=== PATIENT | female | born 1950 | race Caucasian/White ===

== ENCOUNTER → 2016-07-06 | Outpatient (CLI) | payer BC ==
[~2016-07-06] MED LIST: ACET-1138 PO; ALLO100T PO; AMOX500C3 PO; APIX1TAB3 PO; ATOR10TA88 PO; DIGO0.122 PO; FRRG PO; LEVO75TA5 PO; LISI2.5T5 PO; METO1TAB69 PO; METR0.75 TOP; MULT-506 PO; POLYSOL4 OP; PRED1SUS3 OPR; RXC5 PO
[2016-07-06 15:06] LABS: ALT/SGPT 21 U/L (12-78); AST/SGOT 19 U/L (15-37); BLOOD UREA NITROGEN 25 mg/dl (7-18); BUN/CREATININE RATIO 25.8 (10-20); CALCIUM 8.7 mg/dl (8.5-10.1); CARBON DIOXIDE 24 mmol/L (21-32); CHLORIDE 106 mmol/L (98-107); CREATININE 0.98 mg/dl (0.60-1.20); GLUCOSE 78 mg/dl (70-99); POTASSIUM 4.1 mmol/L (3.5-5.1); SODIUM 141 mmol/L (136-145)
[2016-07-06 15:17] LABS: ALKALINE PHOSPHATASE 77 U/L (45-117)
== END | disposition home or self-care (01) ==
LOC: C.LAB 14:19
PROVIDERS: ATTEND Nurse Practitioner
DX: E03.9 Hypothyroidism, unspecified (principal); E78.5 Hyperlipidemia, unspecified

== ENCOUNTER 2016-08-01 04:55 | Inpatient (IN) | payer BC ==
[2016-07-06 13:16] VITALS: BMI 28.0
--- NOTE | 2016-07-06 14:08 | PAT Medication Instructions ---
Service Date Jul 06, 2016. Current Home Medication List Allopurinol (Zyloprim), 100 MG PO QAM Amoxicillin (Amoxil), 500 MG PO UD PRN for PRIOR TO DENTAL PROCEDURES Apixaban (Eliquis), 5 MG PO BID Atorvastatin (Lipitor), 10 MG PO QAM Digoxin (Lanoxin), 0.125 MG PO QAM Levothyroxine Sodium (Levothyroxine Sodium), 75 MCG PO QAM Lisinopril (Lisinopril), 2.5 MG PO QAM Metoprolol Succ (Toprol Xl) (Toprol-Xl ), 150 MG PO QAM Metronidazole (Topical) (Metronidazole), 1 APPLN TOP BID PRN Multivitamin (Multivitamin), 1 TAB PO QAM Polyethylene Glycol-Propylene (Systane), 1 DROPS OP 6X/DAY PRN for DRY EYES Medication Instructions For Your Scheduled Surgery Apixaban (Eliquis), 5 MG PO BID (check with orthopedic rn for instructions- in order to have spinal anesthesia you have to be off Eliquis for three days) - Hold the following medications 24 hours prior to surgery: Metronidazole (Topical) (Metronidazole), 1 APPLN TOP BID PRN - Hold the following medications the morning of surgery: Multivitamin (Multivitamin), 1 TAB PO QAM Lisinopril (Lisinopril), 2.5 MG PO QAM Amoxicillin (Amoxil), 500 MG PO UD PRN for PRIOR TO DENTAL PROCEDURES - Take the following medications the morning of surgery with a sip of water: Polyethylene Glycol-Propylene (Systane), 1 DROPS OP 6X/DAY PRN for DRY EYES Metoprolol Succ (Toprol Xl) (Toprol-Xl ), 150 MG PO QAM Levothyroxine Sodium (Levothyroxine Sodium), 75 MCG PO QAM Digoxin (Lanoxin), 0.125 MG PO QAM Atorvastatin (Lipitor), 10 MG PO QAM Allopurinol (Zyloprim), 100 MG PO QAM - Take the following medications as scheduled the night before surgery: Polyethylene Glycol-Propylene (Systane), 1 DROPS OP 6X/DAY PRN for DRY EYES If you have any questions please call us at [phone] or [phone] ( Silvana) or [phone]
[2016-07-06 14:44] LABS: BASO % 1.5 %; BASO ABS # 0.09 K/uL (0-0.2); COMPLETE YES; EOS % 1.7 %; HEMATOCRIT 38.8 % (37-47); IG% 0.5 %; LYMPH % 24.4 %; LYMPH ABS # 1.45 K/uL (1.2-3.4); MEAN CELL VOLUME 97.5 fL (80-100); MEAN CORPUSCULAR HEMOGLOBIN 32.4 pg (25-34); MEAN CORPUSCULAR HGB CONC 33.2 g/dl (32-36); MEAN PLATELET VOLUME 9.5 fL (7.4-10.4); MONO % 10.9 %; PLATELET COUNT 213 K/uL (130-400); RED BLOOD COUNT 3.98 M/uL (4.2-5.4); WHITE BLOOD COUNT 5.94 K/uL (4.8-10.8)
[2016-07-06 14:57] LABS: INR 1.1 (0.9-1.1); PARTIAL THROMBOPLASTIN RATIO 1.2; PROTHROMBIN TIME (PATIENT) 11.6 SECONDS (9.0-12.0)
--- NOTE | 2016-07-06 15:02 | DIAGNOSTIC IMAGING REPORT ---
CHEST PREADMISSION(PA/LAT) CLINICAL HISTORY: Preoperative evaluation. COMPARISON STUDY: Chest radiograph November 05, 2014. FINDINGS: Lung volumes are normal. There is no pneumothorax or pleural effusion. There is no evidence of pulmonary edema. No consolidation is identified. A nodular density projecting over the left lower lung is unchanged since exam of September 01, 2013 and is therefore likely benign. A right clavicular internal fixation is noted. Cardiac size is normal. Mediastinal contours are normal. The left axilla surgical clips. IMPRESSION: No acute cardiopulmonary findings. Electronically signed by: Gerber Copeland M.D. 07/06/2016 2:58 PM Dictated Date/Time: 07/06/2016 2:56 PM
--- NOTE | 2016-07-29 15:24 | HISTORY & PHYSICAL EXAMINATION ---
DATE OF ADMISSION: 08/01/2016 CHIEF COMPLAINT: Right hip pain. HISTORY OF PRESENT ILLNESS: A 65-year-old female who presents for surgical treatment of the right hip. She has a fairly long history of right hip pain and discomfort that has gradually gotten worse over the past year. She has been treated with extensive conservative treatment. She has had 2 intraarticular hip joint injections, the first one helped her quite a bit and the second one not much at all. She continues to have groin and thigh pain. It radiates down into her knee. She has become more and more debilitated by this. She cannot walk any significant distance. Also has some back pain but more limited by her hip pain. X-ray showed advanced hip arthritis and she is interested in surgery to fix this. PAST MEDICAL HISTORY: Significant for: 1. Atrial fibrillation managed by Dr. oHffman. 2. Hypertension. 3. Elevated cholesterol. 4. Congestive heart failure. 5. Sleep apnea. 6. Hypothyroidism. 7. Mild obesity. 8. Breast cancer, status post lumpectomy. PAST SURGICAL HISTORY: Previous surgeries include: 1. Right wrist/arm surgery. 2. Right clavicle ORIF. 3. Right knee replacement done 09/03/2013. 4. Cataract surgery. ALLERGIES: CODEINE, WHICH IS JUST A SENSITIVITY. CURRENT MEDICINES: Include: 1. Levothyroxine. 2. Digitek. 3. Allopurinol. 4. Eliquis. 5. Atorvastatin. 6. Lisinopril. 7. Metoprolol. 8. Multivitamin. 9. Vitamin D. SOCIAL HISTORY: A 65-year-old female. She is . She lives in [place]. FAMILY HISTORY: Noncontributory. REVIEW OF SYSTEMS: Significant for atrial fibrillation and on Eliquis. No history of DVT or PE. No other bleeding problems. Denies any chest pain or shortness of breath. PHYSICAL EXAMINATION: GENERAL: Reveals a healthy, pleasant middle-aged female. She looks to be in good health. HEENT: Benign. NECK: Supple. No lymphadenopathy. LUNGS: Clear to auscultation. HEART: Has an irregular rhythm with a normal rate. ABDOMEN: Soft, nontender, nondistended. EXTREMITIES: Grossly neurovascularly intact except as follows. Examination of the right hip and leg reveals the patient walks with the use of a cane. She limps on the right side. She is about a 0.5 cm short on the right compared to the left. She has pain with any type of hip motion. She can internally rotate to about 10 degrees with pain, external rotation to 25. Negative straight leg raise. She is neurologically intact. X-RAYS: X-rays of the right hip were reviewed. It shows advanced right hip DJD. She has complete loss of superior joint space. She has got cystic change in the femoral head and acetabulum. Bone density looks pretty good. ASSESSMENT: A 65-year-old female, status post a right knee replacement and known history of atrial fibrillation with advanced right hip degenerative joint disease really limiting her activities. I do think her hip is limiting her more than her back. She has failed conservative treatment and would like to have her right hip replaced. PLAN: We are going to take her to the operating room and do a right total hip replacement. The risks and benefits of this procedure were explained to the patient, including but not limited to DVT, PE, , infection, neurological injury, vascular injury, bleeding problem, pain, limited range of motion, stiffness, failure to relieve symptoms, incomplete relief of symptoms, need for further surgery in the future, fracture, leg length inequality, nerve palsy, dislocation, etc. The patient understands and desires to proceed. I do not think she probably has slightly increased risk of dislocation as her hip is a bit more supple than the average. We discussed this issue with her. The patient has seen Dr. Hoffman and been cleared for surgery. She will stop her Eliquis 72 hours preop. She will hold her lisinopril the morning of surgery and make sure she takes her metoprolol. As far as discharge plans, she is planning to be discharged to home with [facility]. I will see her back 2 weeks postop.
[2016-08-01] VITALS (11 sets, daily range): BP systolic 102–133; BP diastolic 69–92; PULSE 54–90; TEMP 36.3–38.2; O2SAT 96–100; Ht 165.1 cm; Wt 76.4 kg
[~2016-08-01] VITALS: Ht 165.1 cm; Wt 76.4 kg
[~2016-08-01 04:55] MED LIST changes: -ACET-1138 PO; -FRRG PO; -PRED1SUS3 OPR; -RXC5 PO
[2016-08-01] MEDS ORDERED: SCOPOLAMINE 1.5 MG TDSY TD SCH (06:00)
[2016-08-01] MEDS ORDERED: CEFAZOLIN 2000 MG/60 ML D5W 60 ML IV SCH (06:00)
[2016-08-01] MEDS ORDERED: FAMOTIDINE 20 MG TAB PO SCH (06:00)
[2016-08-01] MEDS ORDERED: GABAPENTIN 300 MG CAP PO SCH (06:00)
[2016-08-01] MEDS ORDERED: METOCLOPRAMIDE HCL 10 MG TAB PO SCH (06:00)
[2016-08-01] MEDS ORDERED: ACETAMINOPHEN 500 MG TAB PO SCH (06:00)
[2016-08-01] MEDS ORDERED: TRANEXAMIC ACID INJ 1,000 MG in SODIUM CHLORIDE 0.9% 100ML 100 ML IV SCH (06:00)
[2016-08-01] MEDS ORDERED: BUPIVACAINE 0.5 % 5 MG/1 ML PF 10ML VIAL ONE (06:27)
[2016-08-01] MEDS ORDERED: LACTATED RINGER'S 1000ML IV SCH (06:30)
[2016-08-01] MEDS ORDERED: LACTATED RINGER'S 1000ML 1,000 ML IV SCH (06:30)
[2016-08-01] MEDS ORDERED: BUPIVACAINE/EPINEPHRINE 0.5% MPF 1:200,000 30 ML VIAL ONE (06:48)
[2016-08-01] MEDS ORDERED: BACITRACIN 50000 UNIT VIAL ONE (06:48)
--- NOTE | 2016-08-01 06:50 | History & Physical Bridge Note ---
H&P Re-Evaluation Bridge Note: I have examined the patient, reviewed the History & Physical and in the interval since the performance of the History & Physical I have noted the following changes of clinical significance: No changes noted
[2016-08-01] MEDS ORDERED: MIDAZOLAM HCL 1 MG/ML 2ML VIAL ONE (06:53)
[2016-08-01] MEDS ORDERED: PROPOFOL IV EMULSION 10 MG/ML 20 ML VIAL IV ONE ×2 (08:14→08:21)
[2016-08-01] MEDS ORDERED: PHENYLEPHRINE 100MCG/ML 5ML SYR ONE (08:14)
[2016-08-01] MEDS ORDERED: PHENYLEPHRINE 100MCG/ML 5ML SYR IV PRN (08:30)
[2016-08-01] MEDS ORDERED: HYDROmorphone INJ 0.5 MG/0.5 ML SYR IV PRN (08:30)
[2016-08-01] MEDS ORDERED: EpHEDrine SULFATE INJ 50 MG/ML AMP IV PRN (08:30)
[2016-08-01] MEDS ORDERED: ONDANSETRON INJ 2 MG/ML 2 ML VIAL IV PRN ×2 (08:30→08:45)
[2016-08-01] MEDS ORDERED: ATROPINE SULFATE 0.1 MG/ML 5ML SYR IV PRN (08:30)
--- NOTE | 2016-08-01 08:39 | [facility] Post Operative Brief Note ---
Immediate Operative Summary Operative Date Aug 01, 2016. Pre-Operative Diagnosis Right hip degenerative joint disease Post-Operative Diagnosis Right hip degenerative joint disease Procedure(s) Performed Right total hip arthroplasty Surgeon Dr. Clark Long Designer Writer Surgeon(s) Amilcar Russell PA-C Estimated Blood Loss 300ML Findings Right Hip DJD Fluids (cc crystalloids) 1200 cc Specimens A. Right femoral head Drains None Anesthesia Spinal Complication(s) None Disposition Recovery Room / PACU
[2016-08-01] MEDS ORDERED: ALUMINUM/MAGNESIUM/SIMETH (MAALOX MAX) 30 ML UDC PO PRN (08:45)
[2016-08-01] MEDS ORDERED: DiphenhydrAMINE HCL 50 MG/ML VIAL IV PRN (08:45)
[2016-08-01] MEDS ORDERED: ZOLPIDEM TARTRATE 5 MG TAB PO PRN (08:45)
[2016-08-01] MEDS ORDERED: METOCLOPRAMIDE HCL INJ 5 MG/ML 2 ML VIAL IV PRN (08:45)
[2016-08-01] MEDS ORDERED: SILVER SULFADIAZINE 1% CR 50 GM JAR EXT PRN (08:45)
[2016-08-01] MEDS ORDERED: METRONIDAZOLE TOP PRN (08:45)
[2016-08-01] MEDS ORDERED: BISACODYL 10 MG SUPP PR PRN (08:45)
[2016-08-01] MEDS ORDERED: MAGNESIUM HYDROXIDE SUSP 30 ML UDC PO PRN (08:45)
[2016-08-01] MEDS ORDERED: MULTIVITAMIN TAB PO SCH (09:00)
--- NOTE | 2016-08-01 09:15 | Anesthesiology Progress Note ---
Anesthesia Post Op Note Date & Time Aug 01, 2016 at 09:15 Vital Signs Pain Intensity: 0 Vital Signs Past 12 Hours Date Time Temp Pulse Resp B/P Pulse Ox O2 Delivery O2 Flow Rate FiO2 08/01/16 08:40 36.8 78 16 115/71 100 Mask 10 08/01/16 05:44 36.7 90 20 125/76 99 Room Air Notes Mental Status: alert / awake / arousable, participated in evaluation Pt Amnestic to Procedure: Yes Nausea / Vomiting: adequately controlled Pain: adequately controlled Airway Patency, RR, SpO2: stable & adequate BP & HR: stable & adequate Hydration State: stable & adequate Anesthetic Complications: no major complications apparent
--- NOTE | 2016-08-01 09:17 | DIAGNOSTIC IMAGING REPORT ---
AP PELVIS AND RIGHT HIP 2 VIEWS CLINICAL HISTORY: Degenerative arthritis COMPARISON STUDY: No previous studies for comparison. FINDINGS: There are postsurgical changes of a total right hip arthroplasty. The acetabular and femoral components appear well seated. No acute fractures or dislocations are visualized. There is air within the soft tissues consistent with recent surgery. There are overlying skin brian. There is a deformity of the left ischio pubic ring. This is felt to be chronic. IMPRESSION: Postsurgical changes of a total right hip arthroplasty. Electronically signed by: Tc Marcelino M.D. 08/01/2016 9:15 AM Dictated Date/Time: 08/01/2016 9:14 AM
--- NOTE | 2016-08-01 09:20 | OPERATIVE REPORT ---
DATE OF OPERATION: 08/01/2016 SURGEON: Dr. Clark Long. NNPS: MAUREEN Whitlock PREOPERATIVE DIAGNOSIS: Right hip degenerative joint disease. POSTOPERATIVE DIAGNOSIS: Same. PROCEDURE PERFORMED: Right uncemented ceramic on highly cross-linked polyethylene total hip arthroplasty. COMPLICATIONS: None. ESTIMATED BLOOD LOSS: 300 mL. FLUID REPLACEMENT: 1200 mL crystalloid fluid replacement. ANESTHESIA: Spinal. DRAINS: None. SPECIMENS: Right femoral head sent for pathology. OPERATIVE INDICATIONS: The patient is a 65-year-old female with a fairly long history of orthopedic problems in the past. She developed progressive and persistent increased right hip pain over the past year. She has had extensive conservative treatment including oral medicines as well as some intra-articular hip join injection, which provided some temporary relief. The patient failed conservative care. She is requiring a cane to get around. She elected to proceed with operative treatment/hip replacement. OPERATIVE FINDINGS: Operative findings revealed advanced right hip DJD. She had grade 4 [id number] disease of the femoral head and acetabulum. She did have a fairly deficient posterior acetabular wall. Fairly shallow acetabular cup. She had osteophytes both around the femoral head as well as the acetabulum. Moderate sized joint effusion and some moderate synovitis. OPERATIVE IMPLANTS: Operative implants consisted of, 1. G7 size 52-mm acetabular shell. 2. A 6.5 cancellous acetabular screws, 1 at 35 mm length and 1 at 20 mm length. 3. [place] hole eliminator. 4. A highly cross-linked polyethylene liner with a 52 mm outer diameter and 32 mm inner diameter. 5. A DePuy size 12 small stature femoral stem. 6. +9/32 mm ceramic articular ball. OPERATIVE PROCEDURE: The patient was taken to the operating room, identified and placed on the operating table in the supine position. All contact areas were appropriately padded. IV antibiotics provided by anesthesia team. A spinal anesthetic had been implemented in the holding area. Bhardwaj catheter was placed in sterile fashion. The patient was then placed in the left lateral decubitus position. An axillary roll was placed. Stulberg hip positioner was used for positioning. Right hip and leg were then prepped and draped in the usual sterile fashion. A posterolateral approach to the right hip was then performed through a curvilinear incision centered over the greater trochanter. Sharp dissection was carried out through the subcutaneous tissues down to the level of the IT band and gluteal fascia. The IT band and gluteal fascia were incised longitudinally in line with the skin incision. The underlying greater trochanteric bursa was excised. The piriformis and external rotators were tagged and taken off the posterior aspect of the femur. Great care was taken throughout the procedure to protect the sciatic nerve at all times. Posterior capsulotomy was then performed leaving a large flap for later repair. Hip was internally rotated and dislocated. Femoral neck osteotomy cut was made with the final cut 11 mm above the lesser trochanter. Femoral head was removed and sent for pathology. The femur was retracted anteriorly. Attention was then drawn to the acetabulum. The acetabular labrum was excised. The pulvinar fat was excised. Sequential reaming of the acetabulum was then performed beginning with a size 45 and progressing up to 51. A 52-mm Biomet G7 acetabular shell was then placed in about 40 degrees of lateral opening and 20 degrees of anteversion. It was fixed with two 6.5 cancellous acetabular screws. A trial liner was placed. Attention was then drawn to the femur. The proximal femur was entered with a cookie cutter followed by canal finder and lateralizing reamer. I reamed the femur beginning with a size 10 and progressing up to 11.5. We got pretty good chatter at 11.5. I then broached beginning with a 10.5 small broach and progressed to a 12.0 small broach. Proximal dimensions were pretty narrow and I did not feel I could get the large broach in. We then used a calcar reamer to smoothen off the calcar. Hip was then trialed and the +9 head seemed to create appropriate soft tissue tension in maximum stability as well as leg length. Hip was fully stable in full extension and external rotation along with flexion to 90 degrees and internal rotation to 70 degrees. We elected to use these implants. All trial implants were removed. The wound was irrigated with copious amounts of pulsatile lavage solution. An apex hole eliminator was placed. IV cross-linked polyethylene liner was placed. A 12 small stature AML femoral stem was placed. A +9/32 mm ceramic articular ball was placed. Hip was located and once again found to be stable. Attention was then drawn toward closing. The wound was irrigated with copious amounts of pulsatile lavage solution. I did inject locally with 60 mL of 0.5% Marcaine with epinephrine. The posterior capsule and external rotators were then repaired through drill holes in the posterior trochanter with #2 Ti-Cron suture. The IT band and gluteal fascia were then closed with #1 PDS suture in running fashion. The subcutaneous tissues were then closed in 2 layers with a deep layer #1 Vicryl suture and the subcutaneous tissues with 2-0 Dexon suture in a buried interrupted fashion. The skin was closed with skin brian. Leg was then cleaned and dried and a sterile dressing of Xeroform, 4 x 4's, ABD pad and foam tape was applied. The patient then transferred to the recovery room in stable condition. The patient tolerated the procedure well. There were no complications. All needle and sponge counts were correct at the end of the operation. I attest to the content of the Intraoperative Record and any orders documented therein. Any exceptions are noted below. ELVIRAD
[2016-08-01] MEDS ORDERED: ARTIFICIAL TEARS OP SOLN OP PRN ×2 (10:30)
[2016-08-01] MEDS: CHECK SCOPOLAMINE PATCH PLACEMENT SCH ×2 (11:11→16:11)
[2016-08-01] MEDS: METOPROLOL SUCC 50MG EXT REL TAB PO SCH (11:12)
[2016-08-01] MEDS: ALLOPURINOL 100 MG TAB PO SCH (11:12)
[2016-08-01] MEDS: ATORVASTATIN 10 MG TAB PO SCH (11:13)
[2016-08-01] MEDS: LEVOTHYROXINE 75 MCG TAB PO SCH (11:13)
[2016-08-01] MEDS: TAPENTADOL ER 50 MG TABCR PO SCH ×2 (11:16→21:36)
[2016-08-01] MEDS: DOCUSATE SODIUM 100 MG CAP PO SCH ×2 (11:16→21:36)
[2016-08-01] MEDS: MULTIVITAMIN TAB PO SCH (11:16)
[2016-08-01] MEDS: LISINOPRIL 2.5 MG TAB PO SCH (11:17)
[2016-08-01] MEDS: PANTOprazole SOD 40 MG TAB PO SCH (11:17)
[2016-08-01] MEDS: D5W AND 1/2NSS + 20MEQ KCL 1,000 ML IV SCH ×2 (11:18→21:37)
[2016-08-01] MEDS ORDERED: NURSING VERBAL MED ORDER ONE (11:30)
[2016-08-01] MEDS: FERROUS GLUCONATE 324 MG TAB PO SCH ×2 (13:03→17:54)
[2016-08-01] MEDS: KETOROLAC TROMETHAMINE 30 MG/ML VIAL IV. SCH ×2 (13:03→17:54)
[2016-08-01] MEDS: ACETAMINOPHEN 500 MG TAB PO SCH ×2 (13:44→21:37)
[2016-08-01] MEDS: OXYCODONE HCL IR 5 MG TAB (IMMEDIATE RELEASE) PO PRN ×2 (14:42→21:46)
--- NOTE | 2016-08-01 15:52 | CARDIOLOGY CONSULTATION ---
DATE OF CONSULTATION: 08/01/2016 HISTORY OF PRESENT ILLNESS: Mrs. Tess Turk is a 65-year-old woman with a history of persistent atrial fibrillation. The patient had been limited recently by right hip pain to the point where she had difficulty with ambulation, in fact she states that after spending most of her life as an active individual, she recently has had to curtail her activities, is no longer able to participate in supports and leading up to her surgery was forced to use crutches for ambulation. As such she has been very sedentary. The patient has a history of atrial fibrillation which has been persistent. Originally, she had evidence of reduced LV function, possibly associated with sustained high ventricular rates. Ventricular function seems to have improved with control of her rate and currently she is asymptomatic with regard to her arrhythmia. Currently, the patient is feeling well. She recently finished her surgery this morning but has no significant pain. She is slightly groggy but otherwise feels comfortable with respect to breathing. She has no chest discomfort. She is not feeling dizzy. She has no sense of palpitations. PAST MEDICAL HISTORY: Significant for: 1. The aforementioned atrial fibrillation. 2. Nonischemic cardiomyopathy, now resolved. 3. Diverticulosis. 4. Gout. 5. Hyperlipidemia. 6. Hypertension. 7. Hypothyroidism. 8. Lumbar radiculopathy. 9. Hemorrhoids. 10. Rosacea. 11. Sleep apnea. 12. Varicose veins. PAST SURGICAL HISTORY: Includes breast surgery and a total knee replacement. The patient recently underwent a right total hip replacement today. OUTPATIENT MEDICATIONS: Include allopurinol, atorvastatin, digoxin, Eliquis, levothyroxine, lisinopril, metoprolol, metronidazole and vitamin D. MEDICAL ALLERGIES: CODEINE. SOCIAL HISTORY: The patient is currently and lives locally. She is a nonsmoker and denies heavy alcohol abuse. FAMILY HISTORY: No history of premature coronary disease. REVIEW OF SYSTEMS: A complete 10-system review of systems was performed and the pertinent positives are noted in the history of present illness. She denied any recent constitutional symptoms such as fevers or chills. She is not aware of any palpitations. She has not had any recent dizziness or lightheadedness, but does admit to less activity due to her right hip pain. She denies significant swelling in her lower extremities recently. No change in her bowel or bladder habits. PHYSICAL EXAMINATION: GENERAL: The patient does not appear in acute distress. She is pleasant individual who is alert and oriented. Mood and affect appeared normal. She answered all questions appropriately. VITAL SIGNS: Include a blood pressure of 130/78 with a pulse of 68. HEENT: Sclerae are anicteric. Pupils equal, reactive to light and accommodation. Extraocular movements were intact. Palpation of submandibular region not really significant lymphadenopathy. NECK: The carotids are palpable bilaterally. I do not appreciate any bruits on auscultation. There is no evidence of jugular venous distention, although the neck tissue was somewhat redundant on exam. LUNGS: Auscultation of both lung galloway revealed them to be clear in the apices. She had good air movement. There were no rales, wheezes or rhonchi. She had normal respiratory effort without use of accessory muscles. HEART: Revealed her to be in an irregular, irregular rhythm and somewhat slow. I do not appreciate any murmurs on exam. PMI was not markedly displaced on palpation. ABDOMEN: Soft and nontender. EXTREMITIES: Evaluation both wrists revealed radial pulses that were equal in intensity. There is no evidence of cyanosis or clubbing. Evaluation of lower extremities revealed a VENKATA hose to be in place. She appeared to have good perfusion. SKIN: I do not appreciate any rashes on examination today. LABORATORY STUDIES: Obtained on 07/06/2016 include a white cell count of 5.9, hemoglobin of 12.9, a platelet count of 213. Metabolic panel done on same date included a sodium 141, potassium of 4.1, creatinine was 0.98. An EKG was obtained today postoperatively. This revealed the patient to be in atrial fibrillation with controlled ventricular response. I reviewed the patient's outpatient medical record which had report of an echocardiogram obtained in January of 2016. This revealed preserved left ventricular systolic function without significant valvular disease. ASSESSMENT AND PLAN: 1. Atrial fibrillation: Longstanding persistent. The patient tends to feel well in atrial fibrillation, although she admits to being very sedentary recently due to her hip disease. It is unclear whether she still feels well when she is more active secondary to this hip replacement. She has had some difficulties in the past with slow heart rates and sinus rhythm and she was felt to be a good candidate for a pacemaker should she want to attempt a return to sinus rhythm in the setting of symptomatic atrial fibrillation. Currently, she is doing well on her standard medical regimen. She is taking her normal medications throughout the perioperative period and feels well with controlled heart rates. She has been restarted on her Eliquis, no additional therapy required at this point in the absence of new symptoms. 2. Nonischemic cardiomyopathy: Resolved. Last echocardiogram revealed preserved left ventricular systolic function. The patient has been maintained on a beta linda and AAKASH inhibitor. It is also likely that she has had improvement in her LV function due to improved rate control. No evidence of volume overload currently. We will need to monitor her during this hospitalization as she mobilized some of her fluids. No symptoms at this time. I will recommend continuation of her outpatient medical regimen.
[2016-08-01] MEDS ORDERED: DIGOXIN 0.125 MG TAB PO SCH (16:00)
[2016-08-01] MEDS: CEFAZOLIN IV 1,000 MG in DEXTROSE 5% 50ML 50 ML IV SCH (16:28)
--- NOTE | 2016-08-01 18:21 | PROGRESS NOTE ---
DATE: 08/01/2016 SUBJECTIVE: A 65-year-old female postop from a right total hip replacement. She is doing well. She was a bit painful earlier, but doing better now. She has been up and about and walked some already. No chest pain or shortness of breath. Not feeling dizzy or lightheaded. OBJECTIVE: VITAL SIGNS: Temperature 36.7. Vital signs stable. GENERAL: Physical examination reveals a healthy, pleasant middle-aged female. She is lying in bed, looks pretty comfortable. LUNGS: Clear to auscultation. HEART: Regular rate and rhythm. ABDOMEN: Soft, nontender, and nondistended. EXTREMITIES: Grossly neurovascularly intact except as follows. Examination of the right lower extremity revealed the leg to be well aligned. Leg lengths were equal. Hip is located. She can dorsiflex and plantarflex her foot appropriately. She is neurologically intact. X-RAYS: X-rays of the right hip from the recovery room were reviewed. It showed a right uncemented total hip arthroplasty. Components looked to be in good position. No signs of problems. ASSESSMENT: A 65-year-old female postop from a right total hip replacement, doing well. Pain is controlled. Hip is located. She is neurologically intact. PLAN: 1. DVT prophylaxis including thigh-high TEDs, SCDs, and we will place her back on her Eliquis. We will start at a prophylactic dose 24 hours postoperatively and then increase to a therapeutic dose probably 72 hours postop to try and decrease her risk of bleeding if acceptable with cardiology. 2. PT/OT. Weightbear as tolerated. Right total hip protocol. 3. Pain control. Doing well with current pain regimen. 4. IV antibiotics x24 hours. 5. Disposition: She is hoping to be discharged to home with some home health once adequately recovered.
[2016-08-02] MEDS: CEFAZOLIN IV 1,000 MG in DEXTROSE 5% 50ML 50 ML IV SCH (01:05)
[2016-08-02] MEDS: KETOROLAC TROMETHAMINE 30 MG/ML VIAL IV. SCH ×2 (01:05→05:38)
[2016-08-02 03:38] VITALS: BP 100/64; PULSE 84; TEMP 36.8; O2SAT 98
[2016-08-02] MEDS: LEVOTHYROXINE 75 MCG TAB PO SCH (05:37)
[2016-08-02] MEDS: ACETAMINOPHEN 500 MG TAB PO SCH ×3 (05:37→21:50)
[2016-08-02] MEDS: D5W AND 1/2NSS + 20MEQ KCL 1,000 ML IV SCH (05:38)
[2016-08-02 07:30] LABS: BUN/CREATININE RATIO 24.3 (10-20); CALCIUM 8.7 mg/dl (8.5-10.1); CREATININE 0.98 mg/dl (0.60-1.20); POTASSIUM 4.7 mmol/L (3.5-5.1)
[2016-08-02 07:43] LABS: BASO % 0.5 %; BASO ABS # 0.04 K/uL (0-0.2); COMPLETE YES; HEMATOCRIT 31.9 % (37-47); IG% 0.8 %; LYMPH % 10.3 %; LYMPH ABS # 0.88 K/uL (1.2-3.4); MEAN CELL VOLUME 102.6 fL (80-100); MEAN CORPUSCULAR HEMOGLOBIN 32.8 pg (25-34); MEAN PLATELET VOLUME 9.8 fL (7.4-10.4); MONO % 12.6 %; NEUT % 73.8 %; PLATELET COUNT 153 K/uL (130-400); RED BLOOD COUNT 3.11 M/uL (4.2-5.4); WHITE BLOOD COUNT 8.57 K/uL (4.8-10.8)
[2016-08-02 07:47] LABS: EOSINOPHIL % 1.7 %; LYMPH ABS # 1.19 K/uL (1.2-3.4); LYMPHOCYTE % 13.9 %; NEUTROPHILS % 72.2 %; PLT ESTIMATE NORMAL
[2016-08-02] MEDS: FERROUS GLUCONATE 324 MG TAB PO SCH ×3 (08:36→17:47)
[2016-08-02] MEDS: CHECK SCOPOLAMINE PATCH PLACEMENT SCH ×3 (08:36→16:22)
[2016-08-02] MEDS: PANTOprazole SOD 40 MG TAB PO SCH (08:37)
[2016-08-02] MEDS: ATORVASTATIN 10 MG TAB PO SCH (08:37)
[2016-08-02] MEDS: APIXABAN 2.5 MG TAB PO SCH ×2 (08:37→20:32)
[2016-08-02] MEDS: DOCUSATE SODIUM 100 MG CAP PO SCH ×2 (08:37→20:31)
[2016-08-02] MEDS: MULTIVITAMIN TAB PO SCH (08:39)
[2016-08-02] MEDS: DIGOXIN 0.125 MG TAB PO SCH (08:39)
[2016-08-02] MEDS: TAPENTADOL ER 50 MG TABCR PO SCH ×2 (08:39→20:31)
[2016-08-02] MEDS: METOPROLOL SUCC 50MG EXT REL TAB PO SCH (08:40)
[2016-08-02] MEDS: LISINOPRIL 2.5 MG TAB PO SCH (08:40)
[2016-08-02] MEDS: ALLOPURINOL 100 MG TAB PO SCH (08:40)
[2016-08-02 08:45] VITALS: BP 122/74; PULSE 78; TEMP 36.6; O2SAT 98
[2016-08-02] MEDS: OXYCODONE HCL IR 5 MG TAB (IMMEDIATE RELEASE) PO PRN ×2 (08:52→21:51)
--- NOTE | 2016-08-02 09:51 | Cardiology Follow-Up ---
Subjective Date of Service: Aug 02, 2016. Pt evaluation today including: conversation w/ patient, physical exam, lab review, review of studies, review of inpatient medication list History of Present Illness Doing well post-surgery yesterday. Minor incisional discomfort, ambulating well with a walker. No palpitations or cardiovascular symptoms. No bleeding (back on Eliquis). Social History Smoking Status: Former Smoker History of Alcohol Use: Yes (1-3 SOCIAL DRINKS WEEKLY) Review of Systems Respiratory: No shortness of breath Cardiac: + palpitations, No chest pain Medications Cardiovascular: Item Value Date Time Apixaban 2.5 mg 08/02/16 0900 (Eliquis Tab) BID/PO 08/02/16 0837 Digoxin 0.125 mg 08/02/16 0900 (Lanoxin Tab) QAM/PO 08/02/16 0839 Atorvastatin 10 mg 08/01/16 0900 Calcium QAM/PO 08/02/16 0837 (Lipitor Tab) Lisinopril 2.5 mg 08/01/16 0900 (Zestril Tab) QAM/PO 08/02/16 0840 Metoprolol 150 mg 08/01/16 0900 Succinate QAM/PO 08/02/16 0840 (Toprol Xl Tab) Objective Vital Signs Past 12 Hours Date Time Temp Pulse Resp B/P Pulse Ox O2 Delivery O2 Flow Rate FiO2 08/02/16 08:45 36.6 78 20 122/74 98 Room Air 08/02/16 08:39 90 08/02/16 03:38 36.8 84 16 100/64 98 Room Air 08/02/16 01:00 Room Air 08/01/16 23:03 36.7 88 16 102/69 98 Room Air Last Recorded Weight-Kilograms: 76.400 Intake & Output 8-Hour Column 08/01/16 08/02/16 08/02/16 16:00 00:00 08:00 Intake Total 1597 ml 859 ml 720 ml Output Total 855 ml 250 ml 1050 ml Balance 742 ml 609 ml -330 ml 24-Hour Column 08/02/16 08:00 Intake Total 3176 ml Output Total 2155 ml Balance 1021 ml Physical Exam Constitutional: Level of Distress: NAD Lungs: Auscultation: breath sounds normal Cardiovascular: Heart Auscultation: irregular rate rhythm Data Laboratory Results: Last 24 Hours Test 08/02/16 06:30 White Blood Count 8.57 K/uL Red Blood Count 3.11 M/uL Hemoglobin 10.2 g/dL Hematocrit 31.9 % Mean Corpuscular Volume 102.6 fL Mean Corpuscular Hemoglobin 32.8 pg Mean Corpuscular Hemoglobin Concent 32.0 g/dl Platelet Count 153 K/uL Mean Platelet Volume 9.8 fL Neutrophils (%) (Auto) 73.8 % Lymphocytes (%) (Auto) 10.3 % Monocytes (%) (Auto) 12.6 % Eosinophils (%) (Auto) 2.0 % Basophils (%) (Auto) 0.5 % Neutrophils # (Auto) 6.33 K/uL Lymphocytes # (Auto) 0.88 K/uL Monocytes # (Auto) 1.08 K/uL Eosinophils # (Auto) 0.17 K/uL Basophils # (Auto) 0.04 K/uL RDW Standard Deviation 52.5 fL RDW Coefficient of Variation 14.2 % Immature Granulocyte % (Auto) 0.8 % Immature Granulocyte # (Auto) 0.07 K/uL Neutrophils % (Manual) 72.2 % Lymphocytes % (Manual) 13.9 % Monocytes % (Manual) 12.2 % Eosinophils % (Manual) 1.7 % Neutrophils # (Manual) 6.19 K/uL Total Absolute Neutrophils 6.19 K/uL Lymphocytes # (Manual) 1.19 K/uL Total Absolute Lymphocytes 1.19 K/uL Monocytes # (Manual) 1.05 K/uL Eosinophils # (Manual) 0.15 K/uL Platelet Estimate NORMAL Sodium Level 141 mmol/L Potassium Level 4.7 mmol/L Chloride Level 109 mmol/L Carbon Dioxide Level 26 mmol/L Anion Gap 6.0 mmol/L Blood Urea Nitrogen 24 mg/dl Creatinine 0.98 mg/dl Est Creatinine Clear Calc Drug Dose 60.1 ml/min Estimated GFR () 71.2 Estimated GFR (Non- 61.4 BUN/Creatinine Ratio 24.3 Random Glucose 110 mg/dl Calcium Level 8.7 mg/dl Assessment and Plan #1. Postop: Doing well postoperatively, recovering nicely from surgery. #2. Atrial fibrillation: Back on eliquis, heart rate well controlled on vital signs and exam. Asymptomatic. I would recommend sending her home on the same cardiac medications that she was on admission. Thank you for allowing me to participate in her care.
[2016-08-02 09:57] VITALS: O2SAT 98
--- NOTE | 2016-08-02 12:07 | PROGRESS NOTE ---
DATE: 08/02/2016 DATE: 08/02/2016. SUBJECTIVE: A 65-year-old white female postop day 1 from right total hip replacement. She is doing well. Had a pretty good night. Pain is controlled. Denies any chest pain or shortness of breath. Not feeling dizzy or lightheaded. OBJECTIVE: VITAL SIGNS: Temperature is 36.6. Vital signs stable. PHYSICAL EXAMINATION: GENERAL: Reveals a healthy pleasant, middle-aged female. She is lying in bed, looks pretty comfortable. LUNGS: Clear to auscultation. HEART: Has an irregularly irregular rhythm. ABDOMEN: Soft, nontender, nondistended. EXTREMITY EXAMINATION: Grossly neurovascularly intact except as follows: Examination of right hip and leg reveals the leg to be well aligned. Hip is located. Dressing is clean, dry and intact. She can dorsiflex and plantarflex her foot appropriately. LABORATORY DATA: Hemoglobin 10.2, hematocrit 31.9. Electrolytes are stable. ASSESSMENT: A 65-year-old white female postop day 1 from right total hip replacement, doing well. Pain is controlled. Her hip is located. She is neurologically intact. Has a significant cardiac history but asymptomatic. She is anemic, but without symptoms. PLAN: 1. DVT prophylaxis including thigh-high TEDs, SCDs, and we are going to start her back on her Eliquis at a prophylactic dose today and increase it to a therapeutic dose in about 3 days postop. 2. PT/OT. Weight bear as tolerated. Right total hip protocol. 3. Pain control. Doing well with current pain regimen. 4. Disposition. She is planning to be discharged to home with some home health once adequately recovered.
[2016-08-02 12:13] VITALS: BP 108/77; PULSE 80; TEMP 36.8; O2SAT 99
--- NOTE | 2016-08-02 12:58 | Anesthesiology Progress Note ---
Anesthesia Post Op Note Date & Time Aug 02, 2016 at 12:57 Vital Signs Vital Signs Past 12 Hours Date Time Temp Pulse Resp B/P Pulse Ox O2 Delivery O2 Flow Rate FiO2 08/02/16 12:13 36.8 80 19 108/77 99 Room Air 08/02/16 09:57 98 Room Air 08/02/16 08:45 36.6 78 20 122/74 98 Room Air 08/02/16 08:39 90 08/02/16 07:45 Room Air 08/02/16 03:38 36.8 84 16 100/64 98 Room Air 08/02/16 01:00 Room Air Notes Mental Status: alert / awake / arousable, participated in evaluation Pt Amnestic to Procedure: Yes Nausea / Vomiting: adequately controlled Pain: adequately controlled Airway Patency, RR, SpO2: stable & adequate BP & HR: stable & adequate Hydration State: stable & adequate Neuraxial Anesthesia: was administered, sensory block resolved Anesthetic Complications: no major complications apparent
[2016-08-02 16:27] VITALS: BP 108/65; PULSE 83; TEMP 36.8; O2SAT 94
[2016-08-02] MEDS ORDERED: RXC5 PO (21:30)
[2016-08-02] MEDS ORDERED: ACET-1138 PO (21:30)
[2016-08-02] MEDS ORDERED: FRRG PO (21:30)
--- NOTE | 2016-08-02 21:33 | Discharge Instructions ---
Discharge Instructions Date of Service Aug 02, 2016. Admission Reason for Admission: Right Hip Degenerative Joint Disease Discharge Discharge Diagnosis / Problem: Right Hip Replacement Discharge Goals Goal(s): Decrease discomfort, Improve function, Increase independence, Improve disease control, Therapeutic intervention Activity Recommendations Activity Limitations: per Instructions/Follow-up section (Total Hip Precautions ) Weightbearing Status: Right weightbearing . Instructions / Follow-Up Instructions / Follow-Up ACTIVITY RECOMMENDATIONS: Physical Therapy: * Aggressive physical therapy is not usually needed. You will learn to take care of yourself safely and walk. * Follow the "Hip Precautions Instructions." * In some cases, the social media project manager at the hospital will arrange to have a therapist come to your house for the first couple of weeks to help you learn these skills. * You need to practice on your own or with the help of a family member as needed. * When you learn these skills, most of the therapy can be done on your own. Home Exercise: * You were shown a series of exercises in the hospital. Do these exercises three to four times each day including the exercises you were shown in physical therapy. Walking: * Get up and walk several times each day. For the first four weeks, try not to stand or walk for more than one hour at a time. If you do stand or walk for more than one hour, you will not hurt anything, but your leg will likely swell. * As you feel comfortable, you may change from the walker or crutches to a cane and then to independent walking. MEDICATIONS: New Medicine: * You will likely be taking one or more of these medicines: 1. Oxycodone - Take, as directed, when you need it, every four to six hours to control your pain. 2. Iron Sulfate - Take three times each day for the month after surgery to help you replace the blood lost during surgery. * The most common side effects of pain medicine and iron are nausea and constipation. If nausea or constipation is too much of a problem or if you have any questions about your new medicines or doses, call [facility] at . We will try to help you manage these issues. VERY IMPORTANT TO READ AND REVIEW" Pain: * The immediate post-operative period after hip replacement surgery is often quite painful. * You are given a prescription for pain medicine. You should take it, as directed, when you need it, especially before physical therapy and before going to bed. Pain that interferes with sleep is very common and can last several months. * You will likely need pain medicine for the first two to four weeks. It will not stop all of the pain. The pain will lessen and as you feel better, you may change to milder pain medicine such as Tylenol. * The most common side effects of pain medicine are nausea and constipation, so don't take more than you need. SPECIAL CARE INSTRUCTIONS: TEDs/Elastic Stockings: * The white elastic stockings help limit swelling and prevent blood clots from forming in your legs. The more you wear them, the more they work. * Wear them for six weeks. Prevention of Infection: * Take antibiotics one hour before any dental cleaning, dental work, urological procedure, gastrointestinal procedure or any invasive surgery in order to prevent your new joint from getting infected. * You may get the antibiotics from the doctor performing the procedure or you may call our office at before and we will call in a prescription to the pharmacy of your choice. Things to Watch For: * Drainage from the incision site that occurs more than one week after your surgery. * Severely increased leg pain or swelling. * Increased redness at the incision site. * Fever above 102 degrees Fahrenheit. * Unusual chest pain or shortness of breath. * Unusual pain or burning with urination. Call [facility] at with any of the above problems or if you have any questions about your medicines or recovery. FOLLOW UP VISIT: Make an appointment to see your doctor for approximately two weeks after surgery for a progress check and staple removal by calling the office at . Current Hospital Diet Patient's current hospital diet: Regular Diet Discharge Diet Recommended Diet: Regular Diet Procedures Procedures Performed: Right total hip arthroplasty Pending Studies Studies pending at discharge: no Medical Emergencies . Who to Call and When: Medical Emergencies: If at any time you feel your situation is an emergency, please call [phone] immediately. . Non-Emergent Contact Non-Emergency issues call your: Surgeon . "Provider Documentation" section prepared by Clark Long. VTE Core Measure Inpt VTE Proph given/why not?: Other Anticoagulation, T.E.D. Stockings, SCD's
[2016-08-02 23:12] VITALS: BP 110/72; PULSE 91; TEMP 37.1; O2SAT 98
[2016-08-03] MEDS: CHECK SCOPOLAMINE PATCH PLACEMENT SCH (00:24)
[2016-08-03] MEDS: LEVOTHYROXINE 75 MCG TAB PO SCH (05:16)
[2016-08-03] MEDS: ACETAMINOPHEN 500 MG TAB PO SCH (05:16)
[2016-08-03] MEDS: OXYCODONE HCL IR 5 MG TAB (IMMEDIATE RELEASE) PO PRN ×2 (05:18→12:25)
[2016-08-03] MEDS ORDERED: SCOPOLAMINE 1.5 MG TDSY TD SCH (06:00)
[2016-08-03] MEDS ORDERED: CEFAZOLIN 2000 MG/60 ML D5W 60 ML IV SCH (06:00)
[2016-08-03] MEDS ORDERED: LACTATED RINGER'S 1000ML 1,000 ML IV SCH (06:00)
[2016-08-03] MEDS ORDERED: METOCLOPRAMIDE HCL 10 MG TAB PO SCH (06:00)
[2016-08-03] MEDS ORDERED: GABAPENTIN 300 MG CAP PO SCH (06:00)
[2016-08-03] MEDS ORDERED: FAMOTIDINE 20 MG TAB PO SCH (06:00)
[2016-08-03] MEDS ORDERED: LACTATED RINGER'S 1000ML IV SCH (06:00)
[2016-08-03] MEDS ORDERED: ACETAMINOPHEN 500 MG TAB PO SCH (06:00)
[2016-08-03] MEDS ORDERED: TRANEXAMIC ACID INJ 1,000 MG in SODIUM CHLORIDE 0.9% 100ML 100 ML IV SCH (06:00)
[2016-08-03 06:02] VITALS: BP 92/59; PULSE 82; TEMP 36.8; O2SAT 97
[2016-08-03 07:13] VITALS: BP 86/53; PULSE 100
[2016-08-03] MEDS: PANTOprazole SOD 40 MG TAB PO SCH (07:15)
[2016-08-03] MEDS: FERROUS GLUCONATE 324 MG TAB PO SCH ×2 (07:15→12:23)
[2016-08-03] MEDS: ALLOPURINOL 100 MG TAB PO SCH (07:15)
[2016-08-03] MEDS: MULTIVITAMIN TAB PO SCH (07:15)
[2016-08-03] MEDS: DOCUSATE SODIUM 100 MG CAP PO SCH (07:16)
[2016-08-03] MEDS: APIXABAN 2.5 MG TAB PO SCH (07:16)
[2016-08-03] MEDS: ATORVASTATIN 10 MG TAB PO SCH (07:16)
[2016-08-03] MEDS: METOPROLOL SUCC 50MG EXT REL TAB PO SCH (07:17)
[2016-08-03] MEDS: DIGOXIN 0.125 MG TAB PO SCH (07:17)
[2016-08-03] MEDS: LISINOPRIL 2.5 MG TAB PO SCH (07:17)
[2016-08-03] MEDS: TAPENTADOL ER 50 MG TABCR PO SCH (07:20)
--- NOTE | 2016-08-03 07:30 | PROGRESS NOTE ---
DATE: 08/03/2016 SUBJECTIVE: 65-year-old female postop day 2 from right total hip replacement. She is doing pretty well. Having mostly just soreness around the incision area. No chest pain or shortness of breath. Therapy has gone pretty well. OBJECTIVE: VITAL SIGNS: Temperature 36.8. Vital signs stable. PHYSICAL EXAMINATION: GENERAL: Reveals a healthy pleasant, middle-aged female. I had to wake her this morning. She is lying in bed, looks pretty comfortable. EXTREMITIES: Examination of the right hip and leg reveals the leg to be well aligned. Dressing is clean, dry and intact. Thigh is soft and supple. She can dorsiflex and plantarflex her foot appropriately. She is neurologically intact. ASSESSMENT: 65-year-old female postop day 2 from right total hip replacement, doing pretty well. Pain is controlled. She has a history of atrial fibrillation and back on Eliquis. We will restore her therapeutic dose on discharge. PLAN: 1. DVT prophylaxis including thigh-high TEDS, SCDs, and Eliquis. She will go back on a therapeutic dose when she goes home. 2. PT/OT. Weightbearing as tolerated. Right total hip protocol. 3. Pain control, doing pretty well with current pain regimen. 4. Disposition: Plan to discharge to home with some home health.
[2016-08-03 09:39] VITALS: BP_SYST 101; BP_SYST 104; BP_DIAS 60; BP_DIAS 65; PULSE 84; PULSE 89; O2SAT 100
[2016-08-03 09:40] VITALS: TEMP 36.8; O2SAT 97
[2016-08-03 10:13] VITALS: BP 101/66; PULSE 90
[2016-08-03] MEDS ORDERED: CHECK SCOPOLAMINE PATCH PLACEMENT SCH (16:00)
--- NOTE | 2016-08-09 15:51 | DISCHARGE SUMMARY ---
ADMITTING PHYSICIAN AND SURGEON: Dr. Long. ADMITTING DIAGNOSIS: Right hip degenerative joint disease. SURGERY PERFORMED: Right total hip arthroplasty. SECONDARY DIAGNOSES: Atrial fibrillation, hypertension, elevated cholesterol, congestive heart failure, sleep apnea, hypothyroidism, mild obesity, breast cancer. CONSULTS: Dr. Hoffman, cardiology for postoperative cardiac care. HISTORY AND PHYSICAL EXAMINATION: Well documented in the patient's chart. HOSPITAL COURSE: The patient was admitted on 08/01/2016 underwent total hip arthroplasty, tolerated the procedure well. There were no complications and transferred to the PACU postoperatively and later to the orthopedic floor for further care. She was given Ancef for antibiotic prophylaxis, VENKATA stockings, SCDs and Eliquis for DVT prophylaxis. Hemoglobin, hematocrit and vital signs were monitored during her hospital stay and remained stable. She developed some postoperative anemia with a hemoglobin of 10.2, did not require any blood transfusions. She was followed by the cardiology service throughout her hospital stay, there were no complications. By postoperative day 2, she was tolerating a general diet, pain was controlled with oral pain medicine. She was participating in physical therapy and had no signs or symptoms of deep vein thrombosis. On postop day 2, she was discharged home in good condition, set up with home health services. She was given printed discharge instructions including prescriptions for Extra Strength Tylenol, iron supplement and oxycodone. Continue home medications which include Eliquis. Continue physical therapy, weightbearing as tolerated, VENKATA stockings, total hip precautions and follow up in 10-12 days or sooner if there are problems or concerns.
== END 2016-08-03 14:00 | disposition home health service (06) | DRG 470 ==
LOC: ENRESERVDT → ENRESERVTM → C.ACU 04:55 → C.3E 06:40
PROVIDERS: ADMIT Orthopaedic Surgery Sports Medicine; ATTEND Orthopaedic Surgery Sports Medicine
PROC: 0SR904A Replacement of Right Hip Joint with Ceramic on Polyethylene Synthetic Substitute, Uncemented, Open Approach (ICD-10-PCS; principal; 2016-08-01 07:00)
DX: M16.11 Unilateral primary osteoarthritis, right hip (principal); I42.8 Other cardiomyopathies; I48.1 Persistent atrial fibrillation; E03.9 Hypothyroidism, unspecified; E78.00 Pure hypercholesterolemia, unspecified; G47.33 Obstructive sleep apnea (adult) (pediatric); E66.9 Obesity, unspecified; M10.9 Gout, unspecified; I50.9 Heart failure, unspecified; I11.9 Hypertensive heart disease without heart failure; M54.5 Low back pain; M54.10 Radiculopathy, site unspecified; Z96.651 Presence of right artificial knee joint; Z86.711 Personal history of pulmonary embolism; Z85.3 Personal history of malignant neoplasm of breast; Z79.899 Other long term (current) drug therapy; Z79.01 Long term (current) use of anticoagulants

== ENCOUNTER → 2016-09-13 | Outpatient (CLI) | payer BC ==
[~2016-09-13] MED LIST changes: +ACET-1138 PO; +ATOR10TA82 PO; -ATOR10TA88 PO; +FRRG PO; +METO100T44 PO; -METO1TAB69 PO; +RXC5 PO
== END | disposition home or self-care (01) ==
LOC: C.LABBFT 09:21
PROVIDERS: ATTEND Nurse Practitioner
DX: E78.5 Hyperlipidemia, unspecified (principal)

== ENCOUNTER → 2017-03-23 | Outpatient (CLI) | payer BC ==
--- NOTE | 2017-03-23 15:38 | MAMMOGRAPHY REPORT ---
UNILATERAL RIGHT DIGITAL DIAGNOSTIC MAMMOGRAM TOMOSYNTHESIS AND TARGETED RIGHT ULTRASOUND: 03/23/2017 CLINICAL HISTORY: Callback from screening mammogram for right breast asymmetry. TECHNIQUE: Breast tomosynthesis in addition to standard 2D mammography was performed. Spot compress ion right MLO and right ML 2-D and tomosynthesis images were obtained. COMPARISON: Comparison is made to exams dated: 03/14/2017 mammogram, 03/08/2016 mammogram, and 015 mammogram - [facility]. BREAST COMPOSITION: There are scattered areas of fibroglandular density in the right breast. FINDINGS: The previously described nodular asymmetry seen within the right superior breast on the MLO view effaces on the additional spot compression views and has the appearance of normal fibroglandula r tissue on the additional tomosynthesis images. This localizes to the lateral breast based on the l ocalizer bar from screening mammogram. A nodular asymmetry seen within the right breast more superio rly on the MLO view is stable compared to multiple prior exams including the 2012 exam and is conside red benign given long-term stability. Targeted ultrasound was performed of the right upper outer quadrant in the region of the mammographic asymmetry. Sonographically normal tissue is seen, without evidence of a mass or other suspicious so nographic abnormality. IMPRESSION: ACR BI-RADS CATEGORY 2: BENIGN, TARGETED ULTRASOUND ACR BI-RADS CATEGORY 2: BENIGN The right breast asymmetry effaces on the additional images, without corresponding suspicious sonogra phic abnormality evident. Findings are benign and compatible with normal fibroglandular tissue. The re is no mammographic or targeted sonographic evidence of malignancy. A 1 year screening mammogram is recommended. The patient has been verbally notified of the results. Approximately 10% of breast cancers are not detected with mammography. A negative mammographic report should not delay biopsy if a clinically suggestive mass is present. Urvashi Estrada M.D. ah/:03/23/2017 11:27:25 Estimation Manager: Isabell SMITH)([place]athrin), [facility] letter sent: Normal 1/2 BI-RADS Code: ACR BI-RADS Category 2: Benign Ultrasound BI-RADS: ACR BI-RADS Category 2: Benign
== END | disposition home or self-care (01) ==
LOC: C.MAMM 10:58
PROVIDERS: ATTEND Nurse Practitioner
DX: N64.89 Other specified disorders of breast (principal)

== ENCOUNTER → 2017-05-03 | Outpatient (CLI) | payer BC | END | disposition home or self-care (01) | LOC: C.LABSPEC 16:32 | PROVIDERS: ATTEND Physician Assistant | DX: B95.8 Unspecified staphylococcus as the cause of diseases classified elsewhere (principal) ==

== ENCOUNTER 2025-02-01 14:24 | Inpatient (IN) ==
--- NOTE | 2025-02-01 15:08 | Emergency Department Note ---
Impression & Plan Hypotension, Weakness, SOB (shortness of breath), Acute GI bleeding, Hypomagnesemia, Cardiac enzymes elevated ED Provider Note NAME: HILTON MORLEY AGE: 74 SEX: F : 1950 ARRIVES VIA: Walk-In INFORMANT: Patient [] ED PROVIDER(S): [Samir Medley MD] CHIEF COMPLAINT: Short of breath HISTORY OF PRESENT ILLNESS: The patient is a 74-year-old female who has a history of alcohol abuse. She has had a week of symptoms. She feels dizzy, faint, shaky. She has been short of breath especially with stairs. She just is not quite herself. The patient's believes that her presentation is alcohol related. The patient denies any cough or chest pain. She does not have a headache, she has not fallen. No vomiting or diarrhea, no black or tarry stool. She is on Eliquis for A-fib. PMHx/PSHx/Social Hx: See Below PHYSICAL EXAM: GENERAL: Patient is in no acute distress. HEENT: No acute trauma, normocephalic atraumatic, mucous membranes moist, no nasal congestion. NECK: No stridor, no adenopathy, no meningismus, trachea is midline. LUNGS: Clear to auscultation bilaterally, no wheeze, no rhonchi, breath sounds equal. HEART: Irregular rhythm, no murmur, normal rate. ABDOMEN: Soft, nontender, no peritonitis. EXTREMITIES: No cyanosis, full range of motion of all the joints without pain or difficulty. NEUROLOGIC: Awake and alert, seems to move all extremities equally. No speech slurred SKIN: No jaundice, no diaphoresis. Rectal: Black stool, heme positive. DIFFERENTIAL DIAGNOSIS: Intracranial injury, dehydration, alcohol abuse, renal or liver failure, UTI, among others. EMERGENCY DEPARTMENT PROCEDURES: MEDICAL DECISION MAKING: There is no leukocytosis. The hemoglobin is quite low at 4.4. A rectal exam was performed and was heme positive, the stool was black. There was a normal platelet count. No coagulopathy. Creatinine somewhat elevated consistent with some dehydration/acute kidney injury. Sodium was somewhat low at 131. Magnesium was low at 1.6. Ammonia level was not elevated. No worrisome liver enzyme elevation. TSH was high however, the T4 was normal. ECG showed atrial fibrillation, no obvious acute ischemia. Cardiac enzyme testing does show some elevation, this troponin elevation could be from cardiac injury or just mismatch from the weakness and shortness of breath. BNP was elevated although, there was no heart failure on chest x-ray. There was no pneumonia on chest x-ray. Urinalysis did not show findings of infection. Digoxin level was a bit elevated at 2.1. No need for emergent correction. Urine tox was negative. Alcohol level was undetectable. COVID, influenza and RSV test were negative. Brain CT showed no acute bleed or mass effect. CT of the abdomen pelvis did not show any intra-abdominal hematoma, there was no source for the GI bleeding noted by CT imaging. The patient did receive IV Protonix and IV Pepcid. She was given a 500 cc saline bolus. She was given IV magnesium. She was ordered for 2 units of packed red blood cells to be transfused. The appropriate paperwork was completed and signed. The patient presents with weakness and shortness of breath. She was quite anemic. She is suffering from a GI bleed. Admission/observation, further workup and a GI consult are warranted. I spoke with the patient and case management, the on-call hospitalist was consulted. Prior/Outside records/notes reviewed: None ECG per my interpretation: Indication was weakness. The ECG shows atrial fibrillation with a rate of 71. There is no acute ST elevation, there is diffuse nonspecific ST change. No PVCs. The QTc is 443. Continuous Cardiac Monitoring per my interpretation: An order was placed for continuous cardiac monitoring. The monitor shows a rate of 69 with atrial fibrillation. Imaging/x-ray results per my interpretation: Chest x-ray does not show pneumonia, pneumothorax or mediastinal widening. Chronic Medical/Social conditions affecting care: Takes Eliquis daily, history of alcohol abuse. Care/Management discussed with: Case management, the on-call hospitalist. Level of care consideration(s): After review of the information above and other included data: --I believe the patient requires escalation of care to admission Critical Care Note: I have personally spent 51 minutes of critical care time in the direct management of this patient. This includes bedside care, interpretation of diagnostic studies, and testing, discussion with consultants, patient, and family members, and other required patient management activities. This 51 minutes is in excess of all separately billable procedures. DISPOSITION: Admission Past Med/Surg History Problem List (Updated 02/01/25 @ 23:53 by Samir Medley MD) Cardiac enzymes elevated (Acute) Hypomagnesemia (Acute) Acute GI bleeding (Acute) SOB (shortness of breath) (Acute) Weakness (Acute) Hypotension (Acute) Chronic a-fib Acute blood loss anemia Vein disorder Iron deficiency anemia Carotid stenosis Secondary hyperparathyroidism (Acute) Hyperlipidemia (Acute) Bilateral carpal tunnel syndrome Encounter for pre-operative examination Bleeding on Coumadin (Acute) HTN (hypertension) (Chronic) Atrial fibrillation with RVR (Chronic) Vitamin D deficiency (Acute) Sleep apnea (Acute) Osteopenia (Acute) Lumbar radiculopathy (Acute) Hypothyroidism (Acute) Hypertension (Acute) History of staph infection (Acute) History of malignant neoplasm of breast (Acute) Gout (Acute) Diastolic congestive heart failure (Acute) Cardiomyopathy (Acute) Atrial fibrillation (Acute) Varicose vein of leg (Acute) Sick sinus syndrome Status post left breast lumpectomy 2006 - breast cancer Myalgia Arthralgia of multiple joints Anticoagulant long-term use Bilateral arm pain On statin therapy Multiple risk factors for coronary artery disease Carpal tunnel syndrome on both sides Painful orthopaedic hardware Primary osteoarthritis, left shoulder Medical History Hypothyroid History of skin cancer & REMOVED History of breast cancer DX 2007 - LEFT ARM - HX LUMPECTOMY, LYMPH NODE MAPPING AND RADIATION History of CHF (congestive heart failure) HTN (hypertension) Afib DX 12 YR AGO HX CARDIOVERSION X2 Bilateral carpal tunnel syndrome Left knee DJD Surgical History History of colonoscopy History of cryosurgery History of knee surgery History of left cataract surgery History of lumpectomy of left breast History of right cataract surgery History of right hip replacement History of surgery History of surgery Status post right knee replacement Family History Mother Breast cancer Hypertension Aunt Breast cancer Diabetes Sister Breast cancer Diabetes Hypertension Father Hypertension Myocardial infarction Family/Other Family history of thyroid problem Other Dyslipidemia Denies family history of Ovarian cancer Prostate cancer Colorectal cancer Uterine cancer Social History Smoking Status: Former smoker Tobacco Type: Cigarettes Age Quit Using Tobacco: 48; Second Hand Exposure: No; Do You Dip or Chew Tobacco: No; Hx Alcohol Use: Yes Alcohol type: wine and hard liquor Hx Substance Use: No Preferred Language: Jordanian Communication Ability: Effective Visual Impairment: No Limitations Hearing Ability: Normal [employer] Required: No Beliefs That Will Affect Care: None marital status: Current Living Situation: Spouse current occupational status: retired Feels Safe at Home: Yes Childhood Exposure to Second-Hand Smoke: Yes Diet: regular Diet Comment: Low fat, low sugar caffeine: Yes during the past year weight has: remained stable Dental Care, Regularly: Yes Physical Activity Frequency: Daily Seatbelt Use: always Sunscreen Use: Yes Assistive Devices: None Allergies Allergies Allergy/AdvReac Type Severity Reaction Status Date / Time codeine AdvReac Unknown UPSET Verified 04/24/24 13:46 STOMACH, "MAKES ME THINK WEIRD" Home Meds Home Medications Medication Instructions Recorded Confirmed bimatoprost 0.01 % eye drops 1 drp ophthalmic (eye) DAILY 01/24/24 02/01/25 (Lumigan) cyclosporine 0.05 % eye drops in a 1 drp ophthalmic (eye) Q12H 04/24/24 02/01/25 dropperette Previous Rx's Medication Instructions Recorded tramadol 50 mg tablet 50 mg PO Q6H PRN pain #12 tabs 08/25/20 apixaban 5 mg tablet (Eliquis) 5 mg PO BID #180 tabs 03/10/24 lisinopril 2.5 mg tablet 2.5 mg PO QPM #90 tabs 03/26/24 metoprolol succinate 100 mg 150 mg (1.5 x 100 mg) PO QAM #135 03/26/24 tablet,extended release 24 hr tabs digoxin 125 mcg (0.125 mg) tablet 125 mcg PO QAM #90 tabs 04/07/24 amoxicillin 250 mg capsule 250 mg PO DAILY PRN rosacea flare 04/25/24 5 days #60 caps levothyroxine 150 mcg capsule 150 mcg PO DAILY #90 caps 04/28/24 atorvastatin 40 mg tablet 40 mg PO DAILY #90 tabs 06/30/24 allopurinol 100 mg tablet 100 mg PO QAM #90 tabs 01/21/25 Results & Data (ED) Vital Signs Vital Signs - 24 hr 02/01/25 14:30 02/01/25 14:49 02/01/25 14:53 Temperature 36.4 C L Temperature Source Temporal Artery Scan Pulse Rate 68 68 Pulse Rate [Left Apical] Pulse Rhythm Regular Respiratory Rate 18 18 Respiratory Effort / Characteristics Non-Labored Spontaneous Non-Labored Spontaneous Respiratory Depth Normal Normal Respiratory Pattern Regular Regular Blood Pressure 99/61 L Blood Pressure [Right Arm] Blood Pressure Mean 73 Blood Pressure Mean [Right Arm] Blood Pressure Position [Right Arm] Pulse Oximetry 99 99 Oxygen Delivery Method Room Air Room Air Room Air Sepsis Recent Fever Within 48 Hours No Sepsis New/Unexplained Change in Mental Status N/A Sepsis Action Taken by Nursing No Action Required 02/01/25 14:53 02/01/25 15:30 Temperature Temperature Source Pulse Rate Pulse Rate [Left Apical] 74 Pulse Rhythm Respiratory Rate 16 Respiratory Effort / Characteristics Non-Labored Spontaneous Respiratory Depth Normal Respiratory Pattern Blood Pressure Blood Pressure [Right Arm] 99/57 L Blood Pressure Mean Blood Pressure Mean [Right Arm] 71 Blood Pressure Position [Right Arm] Lying Pulse Oximetry 99 92 Oxygen Delivery Method Room Air Room Air Sepsis Recent Fever Within 48 Hours Sepsis New/Unexplained Change in Mental Status Sepsis Action Taken by [facility] Medications Current Medication List: was personally reviewed by me Laboratory Data Attestation: I reviewed the patient's lab results. 02/01/25 15:02 02/01/25 15:02 Lab Results 02/01/25 02/01/25 02/01/25 Range/Units 15:02 15:04 15:29 WBC 6.03 (4.8-10.8) K/ul RBC 1.42 L (4.20-5.40) M/uL Hgb 4.4 L* (12.0-16.0) g/dl Hct 14.6 L* (37.0-47.0) % MCV 102.8 H (80.0-100.0) fL MCH 31.0 (25.0-34.0) pg MCHC 30.1 L (32.0-36.0) g/dL RDW Std Deviation 60.6 H (36.4-46.3) fL RDW Coeff of Arnaldo 16.0 H (11.5-14.5) % Plt Count 160 (130-400) K/uL MPV 10.0 (9.4-12.4) fL Immature Gran % (Auto) 1.7 % Neut % (Auto) 68.4 % Lymph % (Auto) 13.8 % [place] % (Auto) 15.3 % Eos % (Auto) 0.3 % Baso % (Auto) 0.5 % Neut # (Auto) 4.13 (1.40-6.50) K/uL Lymph # (Auto) 0.83 L (1.20-3.40) K/uL [place] # (Auto) 0.92 H (0.11-0.59) K/uL Eos # (Auto) 0.02 (0.00-0.50) K/uL Baso # (Auto) 0.03 (0.00-0.20) K/uL Immature Gran # (Auto) 0.10 (0.01-0.20) K/uL Absolute Nucleated RBC 0.06 (0.00-0.12) K/uL Nucleated RBC % (auto) 1.0 % Polychromasia 2+ Anisocytosis Present PT 12.0 (9.0-12.0) Seconds INR 1.1 (0.9-1.1) APTT 23 (21-31) Seconds PTT Ratio 0.9 Sodium 131 L (136-145) mmol/L Potassium 4.4 (3.5-5.1) mmol/L Chloride 96 L (98-107) mmol/L Carbon Dioxide 25 (21-32) mmol/L Anion Gap 10 (3-11) BUN 54 H (6-23) mg/dl Creatinine 1.50 H (0.6-1.2) mg/dl Est Cr Clr Drug Dosing Not Reportable eGFR 36.80 BUN/Creatinine Ratio 36.0 H (10-20) Glucose 114 H (70-99(Fasting)) mg/dl Calcium 10.1 (8.6-10.3) mg/dl Magnesium 1.6 L (1.7-2.4) mg/dl Total Bilirubin 0.6 (0.2-1.0) mg/dl AST 32 (13-39) U/L ALT 17 (7-52) U/L Alkaline Phosphatase 44 (34-104) U/L Ammonia (18-72) umol/L Total Creatine Kinase 112 (26-192) U/L Troponin I High Sens 34.9 H (0-14) pg/ml B-Natriuretic Peptide 284 H (0-100) pg/ml Total Protein 6.7 (6.0-8.3) gm/dl Albumin 3.8 (3.4-5.0) gm/dl Globulin 2.9 (2.5-4.0) gm/dl Albumin/Globulin Ratio 1.3 (0.9-2) TSH 57.905 H (0.300-4.500) uIu/ml Free T4 0.84 (0.61-1.60) ng/dl Urine Color Yellow Urine Appearance Clear (Clear) Urine pH 6.0 (4.5-7.5) Ur Specific [place] 1.017 (1.000-1.030) Urine Protein Trace H (Negative) Urine Glucose (UA) Negative (Negative) Urine Ketones Negative (Negative) Urine Blood Negative (Negative) Urine Nitrite Negative (Negative) Urine Bilirubin Negative (Negative) Urine Urobilinogen Negative (Negative) Ur Leukocyte Esterase Trace H (Negative) Urine WBC (Auto) 0-5 (0-5) /hpf Urine RBC (Auto) 0-2 (0-2) /hpf U Hyaline Cast (Auto) 3-5 H (0-2) /lpf U Epithel Cells (Auto) 0-2 (0-2) /hpf Urine Bacteria (Auto) None Seen (None Seen) Urine Comment Digoxin 2.1 H (0.8-2.0) ng/ml Urine Opiates Screen Neg (Neg) Ur Methadone, Qual Neg (Neg) Urine Fentanyl Screen Neg (Neg) Urine Barbiturates Neg (Neg) Ur Phencyclidine (PCP) Neg (Neg) U Amphetamin/Meth Scrn Neg (Neg) MDMA (Ecstasy) Screen Neg (Neg) U Benzodiazepines Scrn Neg (Neg) Ur Cocaine Metabolite Neg (Neg) U Marijuana (THC) Screen Neg (Neg) Ethyl Alcohol mg/dL < 10.0 (<10.0) mg/dl SARS-CoV-2 (PCR) NEGATIVE (Negative) Influenza Type A (PCR) Negative (Neg) Influenza Type B (PCR) Negative (Neg) RSV (RT-PCR) Negative (Neg) Blood Type Antibody Screen Crossmatch 02/01/25 02/01/25 Range/Units 15:33 15:46 WBC (4.8-10.8) K/ul RBC (4.20-5.40) M/uL Hgb (12.0-16.0) g/dl Hct (37.0-47.0) % MCV (80.0-100.0) fL MCH (25.0-34.0) pg MCHC (32.0-36.0) g/dL RDW Std Deviation (36.4-46.3) fL RDW Coeff of Arnaldo (11.5-14.5) % Plt Count (130-400) K/uL MPV (9.4-12.4) fL Immature Gran % (Auto) % Neut % (Auto) % Lymph % (Auto) % [place] % (Auto) % Eos % (Auto) % Baso % (Auto) % Neut # (Auto) (1.40-6.50) K/uL Lymph # (Auto) (1.20-3.40) K/uL [place] # (Auto) (0.11-0.59) K/uL Eos # (Auto) (0.00-0.50) K/uL Baso # (Auto) (0.00-0.20) K/uL Immature Gran # (Auto) (0.01-0.20) K/uL Absolute Nucleated RBC (0.00-0.12) K/uL Nucleated RBC % (auto) % Polychromasia Anisocytosis PT (9.0-12.0) Seconds INR (0.9-1.1) APTT (21-31) Seconds PTT Ratio Sodium (136-145) mmol/L Potassium (3.5-5.1) mmol/L Chloride (98-107) mmol/L Carbon Dioxide (21-32) mmol/L Anion Gap (3-11) BUN (6-23) mg/dl Creatinine (0.6-1.2) mg/dl Est Cr Clr Drug Dosing eGFR BUN/Creatinine Ratio (10-20) Glucose (70-99(Fasting)) mg/dl Calcium (8.6-10.3) mg/dl Magnesium (1.7-2.4) mg/dl Total Bilirubin (0.2-1.0) mg/dl AST (13-39) U/L ALT (7-52) U/L Alkaline Phosphatase (34-104) U/L Ammonia 32.0 (18-72) umol/L Total Creatine Kinase (26-192) U/L Troponin I High Sens (0-14) pg/ml B-Natriuretic Peptide (0-100) pg/ml Total Protein (6.0-8.3) gm/dl Albumin (3.4-5.0) gm/dl Globulin (2.5-4.0) gm/dl Albumin/Globulin Ratio (0.9-2) TSH (0.300-4.500) uIu/ml Free T4 (0.61-1.60) ng/dl Urine Color Urine Appearance (Clear) Urine pH (4.5-7.5) Ur Specific [place] (1.000-1.030) Urine Protein (Negative) Urine Glucose (UA) (Negative) Urine Ketones (Negative) Urine Blood (Negative) Urine Nitrite (Negative) Urine Bilirubin (Negative) Urine Urobilinogen (Negative) Ur Leukocyte Esterase (Negative) Urine WBC (Auto) (0-5) /hpf Urine RBC (Auto) (0-2) /hpf U Hyaline Cast (Auto) (0-2) /lpf U Epithel Cells (Auto) (0-2) /hpf Urine Bacteria (Auto) (None Seen) Urine Comment Digoxin (0.8-2.0) ng/ml Urine Opiates Screen (Neg) Ur Methadone, Qual (Neg) Urine Fentanyl Screen (Neg) Urine Barbiturates (Neg) Ur Phencyclidine (PCP) (Neg) U Amphetamin/Meth Scrn (Neg) MDMA (Ecstasy) Screen (Neg) U Benzodiazepines Scrn (Neg) Ur Cocaine Metabolite (Neg) U Marijuana (THC) Screen (Neg) Ethyl Alcohol mg/dL (<10.0) mg/dl SARS-CoV-2 (PCR) (Negative) Influenza Type A (PCR) (Neg) Influenza Type B (PCR) (Neg) RSV (RT-PCR) (Neg) Blood Type A Positive Antibody Screen NEGATIVE Crossmatch See Detail Administered Medications Sodium Chloride (Nss) 1,000 mls @ 80 mls/hr IV .[id number] [facility] Stop: 02/04/25 21:31 Last Admin: 02/01/25 22:19 Dose: 80 mls/hr Documented By: AKP Discontinued Medications Sodium Chloride (Nss) 500 mls @ 999 mls/hr IV .Q31M [facility] Stop: 02/01/25 15:30 Last Infusion: 02/01/25 15:46 Dose: Infused Documented By: Admin: 02/01/25 15:12 Dose: 999 mls/hr Documented By: DARBY Pantoprazole Sodium 80 mg/ (Dextrose) 120 mls @ 400 mls/hr IV NOW ONE Stop: 02/01/25 16:01 Last Infusion: 02/01/25 18:50 Dose: Infused Documented By: Admin: 02/01/25 16:31 Dose: 400 mls/hr Documented By: DARBY Famotidine (Pepcid 20mg Iv Push) 20 mg in 5 mls @ 2.5 mls/min IV NOW STA Stop: 02/01/25 15:45 Last Admin: 02/01/25 16:08 Dose: 2.5 mls/min Documented By: DARBY Magnesium Sulfate/Dextrose (Magnesium Sulfate / D5w) 1 gm in 100 mls @ 100 mls/hr IV NOW STA Stop: 02/01/25 16:56 Last Infusion: 02/01/25 18:50 Dose: Infused Documented By: NRMarcin Admin: 02/01/25 16:08 Dose: 100 mls/hr Documented By: DARBY Ioversol (Optiray 320 100ml) 90 ml IV ONCE ONE Stop: 02/01/25 16:00 Last Admin: 02/01/25 16:00 Dose: 90 ml Documented By: ADDY Miscellaneous (Patient's Height &/Or Weight Needed) 1 each N/A NOW STA Stop: 02/01/25 21:35 Last Admin: 02/01/25 21:58 Dose: 1 each Documented By: MILLICENT Imaging Data Radiologist's Impression: Chest X-Ray 02/01/25 14:49 EXAM: Radiograph of the Chest 1 View INDICATION: Weakness TECHNIQUE: Frontal view of the chest. COMPARISON: 07/06/2016 FINDINGS: Lungs and pleural spaces: Granuloma left base. There is a new adjacent 2.4 x 1.7 cm oval density projecting over the left cardiac apex. No consolidation or pulmonary edema. No pleural effusion or pneumothorax. Heart: Prominent cardiac shadow. Mediastinum: Normal contour. Bones/joints: Intact right clavicular plate. No acute osseous abnormality. Soft tissues: Asymmetric breasts consistent with previous left breast surgery. Chest wall surgical clips noted. Upper abdomen: No abnormality noted. IMPRESSION: 1. No definite acute abnormality. 2. Dense nodule adjacent to a granuloma in the left base is probably a new granuloma. Confirmation with unenhanced CT chest recommended. ACT 112: N/A Electronically signed by Grace Brandon 02-01-2025 4:[address] 02/01/25 14:49 EXAM: CT Head Without Intravenous Contrast INDICATION: Confusion TECHNIQUE: Axial computed tomography images of the head/brain without intravenous contrast. Sagittal and/or coronal reformats are provided. Sagittal and coronal reformatted images were created and reviewed. This CT exam was performed using one or more of the following dose reduction techniques: automated exposure control, adjustment of the mA and/or kV according to patient size, and/or use of iterative reconstruction technique. COMPARISON: No relevant prior studies available. FINDINGS: Limitations: None. Brain and extra-axial spaces: There is age appropriate cortical atrophy and chronic ischemic periventricular white matter hypodensity. No acute infarct, hemorrhage or mass noted. Bones/joints: No acute changes. Soft tissues: No significant abnormality noted. Vasculature: No acute abnormality noted. Sinuses: No layering fluid in the visualized portions of the paranasal sinuses. Mastoid air cells: No mastoid effusion. Orbits: No significant abnormality noted. IMPRESSION: Cerebral atrophy. No acute changes. ACT 112: N/A Electronically signed by Grace Brandon 02-01-2025 4:40 PM Abdomen/Pelvis CT 02/01/25 15:36 EXAM: CT Abdomen and Pelvis With Intravenous Contrast INDICATION: Confusion. Possible bleeding. TECHNIQUE: Axial computed tomography images of the abdomen and pelvis with intravenous contrast. Sagittal and coronal reformatted images were created and reviewed. This CT exam was performed using one or more of the following dose reduction techniques: automated exposure control, adjustment of the mA and/or kV according to patient size, and/or use of iterative reconstruction technique. CONTRAST: 90 ml of Optiray 320 was administered intravenously. COMPARISON: No relevant prior studies available. FINDINGS: Limitations: None. Lung bases: Calcified granuloma left lung base. Pleural space: No visualized pleural effusion or pneumothorax. Heart: Cardiomegaly. Mediastinum: No abnormality noted. ABDOMEN: Liver: The liver is enlarged measuring 23.3 cm long. Hypodensity noted typical of fatty replacement. Smooth cortical contour. No mass or ductal dilation. Gallbladder and bile ducts: No calcified stones or surrounding fluid. No ductal dilation. Pancreas: Homogeneous enhancement. No mass, inflammation or ductal dilation. Spleen: No significant abnormality noted. Adrenals: No significant abnormality noted. Kidneys and ureters: Normal enhancement. No mass, hydronephrosis or visualized stone. Stomach and bowel: Moderate amounts of stool in the redundant colon with scattered diverticulosis. No diverticulitis. No obstruction. PELVIS: Appendix: Well seen and appears normal. Bladder: Incompletely distended and not optimally assessed. No gas or stone. Reproductive: Small uterine fibroids present. The endometrial complex measures 1 cm. No evident mass. ABDOMEN and PELVIS: Intraperitoneal space: No free air. No significant fluid collection. Retroperitoneal space: No retroperitoneal hematoma. Bones/joints: Right hip arthroplasty present and grossly intact. Artifact limits assessment of surrounding structures. Degenerative changes in the spine. No acute osseous abnormality noted. Soft tissues: No significant abnormality noted. Vasculature: Atherosclerotic calcification of the aorta and branches. No aneurysm. Lymph nodes: No pathologically enlarged lymph nodes. IMPRESSION: 1. No identifiable source of hemorrhage. 2. Large fatty liver. 3. Moderate amounts of stool and scattered colonic diverticulosis. No diverticulitis. ACT 112: N/A Electronically signed by Grace Brandon 02-01-2025 4:44 PM Discharge Plan Visit Data Chief Complaint: Shortness of Breath/Dyspnea Stated Complaint: PALE, SOB, UNABLE TO WALK, TREMBLING, CONFUSION ED Provider: Samir Medley Discharge Problem: Hypotension, Weakness, SOB (shortness of breath), Acute GI bleeding, Hypomagnesemia, Cardiac enzymes elevated Patient Disposition: Admitted As Inpatient Condition: Serious Discharge Instructions Interventions: ED Discharge Assessment Last Done: 02/01/25 21:10 Discharge Problem: Hypotension Qualifiers: Hypotension type: unspecified hypotension type Qualified Code(s): I95.9 - Hypotension, unspecified
[2025-02-01] MEDS: SODIUM CHLORIDE 0.9% 500 ML IV SCH (15:12)
[2025-02-01] MEDS ORDERED: SODIUM CHLORIDE 0.9% 100 ML IV PRN (15:35)
[2025-02-01 15:40] LABS: Hematocrit (blood only) 14.6 % (37.0-47.0); Hemoglobin 4.4 g/dl (12.0-16.0); Mean Corpuscular Hemoglobin 31.0 pg (25.0-34.0); Mean Corpuscular Volume 102.8 fL (80.0-100.0); Platelet Count 160 K/uL (130-400); RDW Standard Deviation 60.6 fL (36.4-46.3); Red Blood Count 1.42 M/uL (4.20-5.40); White Blood Count 6.03 K/ul (4.8-10.8)
[2025-02-01 15:48] LABS: Appearance Urine Clear (Clear); Bacteria Urine Automated None Seen (None Seen); Epithelial Cell Urine Auto 0-2 /hpf (0-2); Glucose Urine UA Negative (Negative); RBC Urine Automated 0-2 /hpf (0-2); WBC Urine Automated 0-5 /hpf (0-5)
[2025-02-01 15:49] LABS: Alanine Aminotransferase 17 U/L (7-52); Albumin Globulin Ratio 1.3 (0.9-2); Albumin Level 3.8 gm/dl (3.4-5.0); Alkaline Phosphatase 44 U/L (34-104); Anion Gap 10 (3-11); Bilirubin,Total 0.6 mg/dl (0.2-1.0); Blood Urea Nitrogen 54 mg/dl (6-23); Calcium 10.1 mg/dl (8.6-10.3); Carbon Dioxide 25 mmol/L (21-32); Chloride 96 mmol/L (98-107); Creatine Kinase 112 U/L (26-192); Globulin 2.9 gm/dl (2.5-4.0); Glucose 114 mg/dl (70-99(Fasting)); Magnesium 1.6 mg/dl (1.7-2.4); Potassium 4.4 mmol/L (3.5-5.1); Sodium 131 mmol/L (136-145); Total Protein 6.7 gm/dl (6.0-8.3)
[2025-02-01 15:51] LABS: Anisocytosis Present; Immature Granulocytes # (auto) 0.10 K/uL (0.01-0.20); Immature Granulocytes % (auto) 1.7 %; Polychromasia 2+
[2025-02-01 15:54] LABS: INR 1.1 (0.9-1.1); Partial Thromboplastin Time 23 Seconds (21-31); Prothrombin Time 12.0 Seconds (9.0-12.0)
[2025-02-01] MEDS: OPTIRAY 320 100ml IV ONE (16:00)
[2025-02-01] MEDS: MAGNESIUM SULFATE / D5W 1 GM/100 ML BAG IV STA (16:08)
[2025-02-01] MEDS: FAMOTIDINE 20MG IV PUSH 20 MG/5 ML SYR IV STA (16:08)
[2025-02-01 16:17] LABS: Influenza A virus by PCR Negative (Neg); Influenza B virus by PCR Negative (Neg); SARS CoV2 RNA(COVID-19) Ceph NEGATIVE (Negative)
[2025-02-01 16:21] LABS: Amphetamines+Metham, Urine Neg (Neg); MDMA (Ecstacy), Urine Neg (Neg); Marijuana, Urine Neg (Neg)
--- NOTE | 2025-02-01 16:21 | XRay Report ---
EXAM: Radiograph of the Chest 1 View INDICATION: Weakness TECHNIQUE: Frontal view of the chest. COMPARISON: 07/06/2016 FINDINGS: Lungs and pleural spaces: Granuloma left base. There is a new adjacent 2.4 x 1.7 cm oval density projecting over the left cardiac apex. No consolidation or pulmonary edema. No pleural effusion or pneumothorax. Heart: Prominent cardiac shadow. Mediastinum: Normal contour. Bones/joints: Intact right clavicular plate. No acute osseous abnormality. Soft tissues: Asymmetric breasts consistent with previous left breast surgery. Chest wall surgical clips noted. Upper abdomen: No abnormality noted. IMPRESSION: 1. No definite acute abnormality. 2. Dense nodule adjacent to a granuloma in the left base is probably a new granuloma. Confirmation with unenhanced CT chest recommended. ACT 112: N/A Electronically signed by Grace Brandon 02-01-2025 4:21 PM
--- NOTE | 2025-02-01 16:28 | History & Physical Report ---
Date of Service February 01, 2025 Assessment & Plan (1) Acute blood loss anemia: (2) HTN (hypertension): (3) Cardiomyopathy: (4) Sick sinus syndrome: (5) Chronic a-fib: Plan This is a 74-year-old female with a history of chronic A-fib on Eliquis, cardiomyopathy, sick sinus syndrome who presents to the hospital with worsening shortness of breath. Found to have a hemoglobin of 4.4 with positive occult stool 1. Blood loss anemia: Patient presents with worsening shortness of breath and dark tarry stools Found to have a hemoglobin of 4.4 and positive occult stool Will type and screen Transfused 2 units of blood Recheck hemoglobin 2. GI bleed: Presents with melena, shortness of breath. The offers a history of alcohol use and possibly abuse, Could be gastritis Found to have a hemoglobin of 4.4, positive occult stool Type and screen Clear liquid diet N.p.o. after midnight IV Protonix IV normal saline 80 cc/h Consult GI 3. Atrial fibrillation: Chronic A-fib on digoxin and metoprolol and Eliquis Hold Eliquis Full code History of Present Illness Chief Complaint: Shortness of breath Primary Care Provider: CY De León This is a 74-year-old female with a history of atrial fibrillation on anticoagulation, sick sinus syndrome, cardiomyopathy, CAD who presents to the hospital today on account of worsening shortness of breath. According to the patient, she noticed that she was getting increasingly short of breath which initially started several weeks ago but got worse. Shortness of breath is mostly on exertion, however patient denies chest pain. Here in the emergency department hemoglobin was found to be 4.4 compared to 10.2 just a year ago. In hindsight, patient now admits to having dark tarry stools which has been going on for about a week although she did not think much about it she thought it was due to the iron she was taking. Stool was occult blood positive. CT scan of the head and abdomen pelvis have been done, results pending. She has been typed and screened and will be transfused 2 units of blood. She will be admitted to the hospital, gastroenterology be consulted for further management. Allergies Allergy/AdvReac Type Severity Reaction Status Date / Time codeine AdvReac Unknown UPSET Verified 04/24/24 13:46 STOMACH, "MAKES ME THINK WEIRD" Home Medications Medication Instructions Recorded Confirmed Type cholecalciferol (vitamin D3) 25 1,000 units PO DAILY 03/03/19 04/24/24 History mcg (1,000 unit) capsule multivitamin 1 cap PO DAILY 03/03/19 04/24/24 History magnesium hydroxide 400 mg (170 mg 400 mg PO DAILY 03/04/19 04/24/24 History magnesium) chewable tablet omega-3 fatty acids [Fish Oil] 1 cap PO DAILY 03/09/20 04/24/24 History biotin 1 mg capsule 1 mg PO DAILY 07/06/20 04/24/24 History coenzyme Q10 100 mg capsule 100 mg PO DAILY 07/06/20 04/24/24 History (CoQ-10) zinc 10 mg tablet 10 mg PO DAILY 07/06/20 04/24/24 History tramadol 50 mg tablet 50 mg PO Q6H PRN pain #12 tabs 08/25/20 04/24/24 Rx azelaic acid 15 % topical gel 1 applic topical BID #50 grams 08/21/22 04/24/24 Rx (Finacea) bimatoprost 0.01 % eye drops 1 drp ophthalmic (eye) DAILY 01/24/24 04/24/24 History (Lumigan) cyclopentolate 0.5 % eye drops 1 drp ophthalmic (eye) TID 01/24/24 04/24/24 History ferrous sulfate 325 mg (65 mg 325 mg PO DAILY 01/24/24 04/24/24 History iron) tablet (Feosol) apixaban 5 mg tablet (Eliquis) 5 mg PO BID #180 tabs 03/10/24 04/24/24 Rx lisinopril 2.5 mg tablet 2.5 mg PO QPM #90 tabs 03/26/24 04/24/24 Rx metoprolol succinate 100 mg 150 mg (1.5 x 100 mg) PO QAM #135 03/26/24 04/24/24 Rx tablet,extended release 24 hr tabs digoxin 125 mcg (0.125 mg) tablet 125 mcg PO QAM #90 tabs 04/07/24 04/24/24 Rx cyclosporine 0.05 % eye drops in a 1 drp ophthalmic (eye) Q12H 04/24/24 04/24/24 History dropperette amoxicillin 250 mg capsule 250 mg PO DAILY PRN rosacea flare 04/25/24 Rx 5 days #60 caps levothyroxine 150 mcg capsule 150 mcg PO DAILY #90 caps 04/28/24 Rx atorvastatin 40 mg tablet 40 mg PO DAILY #90 tabs 06/30/24 Rx allopurinol 100 mg tablet 100 mg PO QAM #90 tabs 01/21/25 Rx Past Med/Surg History Problem List (Updated 02/01/25 @ 16:27 by Candy Aevndano MD) Chronic a-fib Acute blood loss anemia Vein disorder Iron deficiency anemia Carotid stenosis Secondary hyperparathyroidism (Acute) Hyperlipidemia (Acute) Bilateral carpal tunnel syndrome Encounter for pre-operative examination Bleeding on Coumadin (Acute) HTN (hypertension) (Chronic) Atrial fibrillation with RVR (Chronic) Vitamin D deficiency (Acute) Sleep apnea (Acute) Osteopenia (Acute) Lumbar radiculopathy (Acute) Hypothyroidism (Acute) Hypertension (Acute) History of staph infection (Acute) History of malignant neoplasm of breast (Acute) Gout (Acute) Diastolic congestive heart failure (Acute) Cardiomyopathy (Acute) Atrial fibrillation (Acute) Varicose vein of leg (Acute) Sick sinus syndrome Status post left breast lumpectomy 2006 - breast cancer Myalgia Arthralgia of multiple joints Anticoagulant long-term use Bilateral arm pain On statin therapy Multiple risk factors for coronary artery disease Carpal tunnel syndrome on both sides Painful orthopaedic hardware Primary osteoarthritis, left shoulder Medical History Afib Bilateral carpal tunnel syndrome Bilateral carpal tunnel syndrome Congestive heart failure History of breast cancer History of CHF (congestive heart failure) History of skin cancer HTN (hypertension) Hyperlipidemia Hypothyroid Left knee DJD Secondary hyperparathyroidism Surgical History History of colonoscopy History of cryosurgery History of knee surgery History of left cataract surgery History of lumpectomy of left breast History of right cataract surgery History of right hip replacement History of surgery History of surgery Status post right knee replacement Family History Mother Breast cancer Hypertension Aunt Breast cancer Diabetes Sister Breast cancer Diabetes Hypertension Father Hypertension Myocardial infarction Family/Other Family history of thyroid problem Other Dyslipidemia Denies family history of Ovarian cancer Prostate cancer Colorectal cancer Uterine cancer Social History Smoking Status: Never smoker Tobacco Type: Cigarettes Age Quit Using Tobacco: 48; Second Hand Exposure: No; Do You Dip or Chew Tobacco: No; Hx Alcohol Use: No Hx Substance Use: No Preferred Language: Serbian Communication Ability: Effective Visual Impairment: No Limitations Hearing Ability: Normal Cupola Tapper Required: No Beliefs That Will Affect Care: None marital status: Current Living Situation: Spouse current occupational status: retired Feels Safe at Home: Yes Childhood Exposure to Second-Hand Smoke: Yes Diet: regular Diet Comment: Low fat, low sugar caffeine: Yes during the past year weight has: remained stable Dental Care, Regularly: Yes Physical Activity Frequency: Daily Seatbelt Use: always Sunscreen Use: Yes Assistive Devices: None Review of Systems Review of Systems: All systems reviewed are negative, apart from the ones contained in the history. Physical Exam Physical Exam: The patient is awake, alert and oriented 3, well developed and well nourished, normocephalic and atraumatic, lying in bed and in no acute distress. HEENT--PERRL, EOMI, mucous membranes and oropharynx mildly dry, pale ++ Neck--supple. No JVD. No bruits. Thyroid normal, trachea midline, no adenopathy. Heart--normal S1 and S2. No murmurs, rubs or gallops. Lungs--clear bilaterally, no respiratory distress, no accessory muscle use. Abdomen--normal bowel sounds and soft. Extremities--no cyanosis or clubbing. No edema. Dermatologic--normal skin turgor, normal color, no abnormal lymph nodes, no rash. Neurologic--cranial nerves II through XII grossly intact. Rheumatologic--normal range of motion. Psychiatric--normal affect. Results & Data Results & Data Vital Signs (Past 12 Hours) Vital Signs Temp Pulse Pulse Resp BP BP Pulse Ox 02/01/25 16:19 74 16 98/52 L 100 02/01/25 15:30 74 16 99/57 L 92 02/01/25 14:53 99 02/01/25 14:53 02/01/25 14:49 68 18 99 02/01/25 14:30 97.5 F L 68 18 99/61 L 99 O2 Del Method 02/01/25 16:19 Room Air 02/01/25 15:30 Room Air 02/01/25 14:53 Room Air 02/01/25 14:53 Room Air 02/01/25 14:49 Room Air 02/01/25 14:30 Room Air PG Care Time/CCT Total # of Minutes Spent Total Time Spent with Patient: Total time spent is greater than 50% in coordination of care (as documented) at patient's floor/unit and/or counseling patient: Coding Level of Care Code 29743 INT INP/OBS CARE 3/75MIN Diagnoses Acute blood loss anemia D62 HTN (hypertension) I10 Cardiomyopathy, unspecified type I42.9 Cardiomyopathy type: unspecified Sick sinus syndrome I49.5 Chronic a-fib I48.20 Time Spent (min) 75 (3) Cardiomyopathy Cardiomyopathy type: unspecified Qualified Code(s): I42.9 - Cardiomyopathy, unspecified
[2025-02-01 16:38] LABS: Thyroid Stimulating Hormone 57.905 uIu/ml (0.300-4.500)
--- NOTE | 2025-02-01 16:41 | CT Scan Report ---
EXAM: CT Head Without Intravenous Contrast INDICATION: Confusion TECHNIQUE: Axial computed tomography images of the head/brain without intravenous contrast. Sagittal and/or coronal reformats are provided. Sagittal and coronal reformatted images were created and reviewed. This CT exam was performed using one or more of the following dose reduction techniques: automated exposure control, adjustment of the mA and/or kV according to patient size, and/or use of iterative reconstruction technique. COMPARISON: No relevant prior studies available. FINDINGS: Limitations: None. Brain and extra-axial spaces: There is age appropriate cortical atrophy and chronic ischemic periventricular white matter hypodensity. No acute infarct, hemorrhage or mass noted. Bones/joints: No acute changes. Soft tissues: No significant abnormality noted. Vasculature: No acute abnormality noted. Sinuses: No layering fluid in the visualized portions of the paranasal sinuses. Mastoid air cells: No mastoid effusion. Orbits: No significant abnormality noted. IMPRESSION: Cerebral atrophy. No acute changes. ACT 112: N/A Electronically signed by Grace Brandon 02-01-2025 4:40 PM
--- NOTE | 2025-02-01 16:45 | CT Scan Report ---
EXAM: CT Abdomen and Pelvis With Intravenous Contrast INDICATION: Confusion. Possible bleeding. TECHNIQUE: Axial computed tomography images of the abdomen and pelvis with intravenous contrast. Sagittal and coronal reformatted images were created and reviewed. This CT exam was performed using one or more of the following dose reduction techniques: automated exposure control, adjustment of the mA and/or kV according to patient size, and/or use of iterative reconstruction technique. CONTRAST: 90 ml of Optiray 320 was administered intravenously. COMPARISON: No relevant prior studies available. FINDINGS: Limitations: None. Lung bases: Calcified granuloma left lung base. Pleural space: No visualized pleural effusion or pneumothorax. Heart: Cardiomegaly. Mediastinum: No abnormality noted. ABDOMEN: Liver: The liver is enlarged measuring 23.3 cm long. Hypodensity noted typical of fatty replacement. Smooth cortical contour. No mass or ductal dilation. Gallbladder and bile ducts: No calcified stones or surrounding fluid. No ductal dilation. Pancreas: Homogeneous enhancement. No mass, inflammation or ductal dilation. Spleen: No significant abnormality noted. Adrenals: No significant abnormality noted. Kidneys and ureters: Normal enhancement. No mass, hydronephrosis or visualized stone. Stomach and bowel: Moderate amounts of stool in the redundant colon with scattered diverticulosis. No diverticulitis. No obstruction. PELVIS: Appendix: Well seen and appears normal. Bladder: Incompletely distended and not optimally assessed. No gas or stone. Reproductive: Small uterine fibroids present. The endometrial complex measures 1 cm. No evident mass. ABDOMEN and PELVIS: Intraperitoneal space: No free air. No significant fluid collection. Retroperitoneal space: No retroperitoneal hematoma. Bones/joints: Right hip arthroplasty present and grossly intact. Artifact limits assessment of surrounding structures. Degenerative changes in the spine. No acute osseous abnormality noted. Soft tissues: No significant abnormality noted. Vasculature: Atherosclerotic calcification of the aorta and branches. No aneurysm. Lymph nodes: No pathologically enlarged lymph nodes. IMPRESSION: 1. No identifiable source of hemorrhage. 2. Large fatty liver. 3. Moderate amounts of stool and scattered colonic diverticulosis. No diverticulitis. ACT 112: N/A Electronically signed by Grace Brandon 02-01-2025 4:44 PM
[2025-02-01 17:13] LABS: T4 Free Thyroxine 0.84 ng/dl (0.61-1.60)
--- NOTE | 2025-02-01 21:07 | Electrocardiogram Report ---
Test Reason : Blood Pressure : */* mmHG Vent. Rate : 71 BPM Atrial Rate : * BPM P-R Int : * ms QRS Dur : 88 ms QT Int : 408 ms P-R-T Axes : * 33 -2 degrees QTcB Int : 443 ms Atrial fibrillation with premature ventricular or aberrantly conducted complexes Low voltage QRS Nonspecific ST abnormality Abnormal ECG When compared with ECG of 24-Apr-2024 13:38, No significant change was found Confirmed by Min Paulino ([id number]) on 02/01/2025 9:06:48 PM Referred By: Confirmed By: Min Paulino
[2025-02-01] MEDS: Patient's HEIGHT &/or WEIGHT Needed STA (21:58)
[2025-02-01] MEDS: SODIUM CHLORIDE 0.9% 1,000 ML IV SCH (22:19)
[2025-02-02 02:03] LABS: Hematocrit (blood only) 19.4 % (37.0-47.0); Hemoglobin 6.2 g/dl (12.0-16.0)
[2025-02-02] MEDS ORDERED: SODIUM CHLORIDE 0.9% 100 ML IV PRN (02:11)
[2025-02-02] MEDS: LEVOTHYROXINE SODIUM 150 MCG TABLET PO SCH (06:18)
[2025-02-02 08:52] LABS: Hematocrit (blood only) 26.0 % (37.0-47.0); Hemoglobin 8.3 g/dl (12.0-16.0); Mean Corpuscular Hemoglobin 29.5 pg (25.0-34.0); Mean Corpuscular Volume 92.5 fL (80.0-100.0); Platelet Count 148 K/uL (130-400); RDW Standard Deviation 61.3 fL (36.4-46.3); Red Blood Count 2.81 M/uL (4.20-5.40); White Blood Count 4.88 K/ul (4.8-10.8)
[2025-02-02 09:05] LABS: Anion Gap 5.0 (3-11); Blood Urea Nitrogen 41.0 mg/dl (6-23); Calcium 9.2 mg/dl (8.6-10.3); Carbon Dioxide 26.0 mmol/L (21-32); Chloride 104.0 mmol/L (98-107); Creatinine Clr Calc Pharmacy 39.3 ml/min; Glucose 94.0 mg/dl (70-99(Fasting)); Potassium 4.1 mmol/L (3.5-5.1); Sodium 135.0 mmol/L (136-145)
[2025-02-02] MEDS: METOPROLOL SUCC 50MG EXT REL TAB PO SCH (09:14)
[2025-02-02] MEDS: FERROUS SULFATE 325 MG TAB PO SCH (09:15)
[2025-02-02] MEDS: ATORVASTATIN 40 MG TAB PO SCH (09:15)
[2025-02-02] MEDS: PANTOprazole 40 MG/10 ML SYR IV SCH ×2 (09:18→21:09)
[2025-02-02] MEDS ORDERED: Nursing to Pharmacy Communication SCH (10:30)
[2025-02-02] MEDS: BIMATOPROST 0.01% OP SOLN 2.5 ML BTL OP SCH ×2 (10:40→21:09)
--- NOTE | 2025-02-02 14:05 | Gastrointestinal Consultation ---
Date of Consultation February 02, 2025 Assessment & Plan (1) Acute blood loss anemia: -Clear liquid diet today -Continue IV Protonix -Continue to monitor H/H -Continue to monitor for overt GI bleeding -NPO after midnight -Bowel prep ordered; EGD & colonoscopy on 02/03/2025 Supervising Physician Co-Signing Physician Notes Patient with severe iron deficiency. Her percent saturation is calculated at 1.64 based on current iron stores on the chart. Patient also seems to be significantly hypothyroid with a TSH of greater than 50. This should be addressed prior to endoscopy. The iron deficiency is likely the cause of her severe anemia she has had dark stool so an upper and lower endoscopy is indicated though is not urgent at this moment. I would recommend we give her some IV iron for iron deficiency. Endoscopy once the severe hypothyroidism is evaluated and addressed. History of Present Illness Reason for Consultation: Anemia, melena Attending Physician: Jessica Light MD History of Present Illness Patient is a 74 yo female with PMH of A fib on anticoagulation, sick sinus syndrome, cardiomyopathy, CAD who presented due to worsening shortness of breath. She was found to have a hemoglobin of 4.4 in the ED. She notes that 1 week ago she had dark stool. She notes she did begin iron supplementation. She has not had a bowel movement since that time. She notes some bowel habit fluctuation. She denies abdominal pain. She does drink alcohol. She is a former smoker. FOBT positive in ED. Last colonoscopy in [address] abd/pelvis in the ED unremarkable. She has since been transfused and H/H 8.3/26.0 at present. Hgb 1 year ago 10.2. BP currently 122/76. HR 61. RR 23. Pre-transfusion MCV 102.8. She has no overt bleeding at present. She is on a PPI. Last dose of Eliquis 02/01 AM. Allergies Allergy/AdvReac Type Severity Reaction Status Date / Time codeine AdvReac Unknown UPSET Verified 04/24/24 13:46 STOMACH, "MAKES ME THINK WEIRD" Home Medications Medication Instructions Recorded Confirmed Type tramadol 50 mg tablet 50 mg PO Q6H PRN pain #12 tabs 08/25/20 02/01/25 Rx bimatoprost 0.01 % eye drops 1 drp ophthalmic (eye) DAILY 01/24/24 02/01/25 History (Lumigan) apixaban 5 mg tablet (Eliquis) 5 mg PO BID #180 tabs 03/10/24 02/01/25 Rx lisinopril 2.5 mg tablet 2.5 mg PO QPM #90 tabs 03/26/24 02/01/25 Rx metoprolol succinate 100 mg 150 mg (1.5 x 100 mg) PO QAM #135 03/26/24 02/01/25 Rx tablet,extended release 24 hr tabs digoxin 125 mcg (0.125 mg) tablet 125 mcg PO QAM #90 tabs 04/07/24 02/01/25 Rx cyclosporine 0.05 % eye drops in a 1 drp ophthalmic (eye) Q12H 04/24/24 02/01/25 History dropperette amoxicillin 250 mg capsule 250 mg PO DAILY PRN rosacea flare 04/25/24 02/01/25 Rx 5 days #60 caps levothyroxine 150 mcg capsule 150 mcg PO DAILY #90 caps 04/28/24 02/01/25 Rx atorvastatin 40 mg tablet 40 mg PO DAILY #90 tabs 06/30/24 02/01/25 Rx allopurinol 100 mg tablet 100 mg PO QAM #90 tabs 01/21/25 02/01/25 Rx Patient History Medical History Hypothyroid History of skin cancer & REMOVED History of breast cancer DX 2007 - LEFT ARM - HX LUMPECTOMY, LYMPH NODE MAPPING AND RADIATION History of CHF (congestive heart failure) HTN (hypertension) Afib DX 12 YR AGO HX CARDIOVERSION X2 Bilateral carpal tunnel syndrome Left knee DJD Surgical History History of cryosurgery cervix, 10-12 yrs ago History of colonoscopy History of surgery EXTERNAL FIXATOR RIGHT ARM/RIGHT WRIST AND SINCE REMOVED History of right cataract surgery History of left cataract surgery History of surgery R CLAVICLE History of lumpectomy of left breast Status post right knee replacement HX History of right hip replacement History of knee surgery RIGHT , ARTHROSCOPY Family History Mother Breast cancer Hypertension Aunt Breast cancer Diabetes Sister Breast cancer Diabetes Hypertension Father Hypertension Myocardial infarction Family/Other Family history of thyroid problem Other Dyslipidemia Denies family history of Ovarian cancer Prostate cancer Colorectal cancer Uterine cancer Social History Smoking Status: Former smoker Tobacco Type: Cigarettes Age Quit Using Tobacco: 48; Second Hand Exposure: No; Do You Dip or Chew Tobacco: No; Hx Alcohol Use: Yes Alcohol type: wine and hard liquor Hx Substance Use: No Preferred Language: Peruvian Communication Ability: Effective Visual Impairment: No Limitations Hearing Ability: Normal Broadcast News Producer Required: No Beliefs That Will Affect Care: None marital status: Current Living Situation: Spouse current occupational status: retired Feels Safe at Home: Yes Childhood Exposure to Second-Hand Smoke: Yes Diet: regular Diet Comment: Low fat, low sugar caffeine: Yes during the past year weight has: remained stable Dental Care, Regularly: Yes Physical Activity Frequency: Daily Seatbelt Use: always Sunscreen Use: Yes Assistive Devices: None Review of Systems Constitutional: no fever and no chills Respiratory: + dyspnea on exertion Cardiovascular: no chest pain Gastrointestinal: no abdominal pain Physical Exam Constitutional: well developed Respiratory: normal respiratory effort Gastrointestinal (Abdomen): normal bowel sounds, soft, nontender, no hepatosplenomegaly Psychiatric: Orientation: alert and oriented x 3 Results & Data Vital Signs (Past 12 Hours) Vital Signs Temp Pulse Pulse Resp BP BP Pulse Ox 02/02/25 11:24 37.1 C 61 23 122/76 100 02/02/25 08:00 91 H 02/02/25 07:54 36.4 C 60 142/87 H 99 02/02/25 06:59 81 17 131/81 02/02/25 05:59 37 C 91 H 119/76 02/02/25 05:14 36.8 C 91 H 130/81 02/02/25 04:59 36.6 C 81 17 128/86 96 02/02/25 04:54 122/81 02/02/25 04:36 36.7 C 81 131/80 02/02/25 03:36 49 L 132/84 02/02/25 03:06 62 18 129/83 96 02/02/25 02:51 36.7 C 60 17 134/86 96 02/02/25 02:35 36.6 C 63 18 130/84 96 O2 Del Method O2 Flow Rate 02/02/25 11:24 Room Air 02/02/25 08:00 02/02/25 07:54 02/02/25 06:59 02/02/25 05:59 02/02/25 05:14 02/02/25 04:59 0 02/02/25 04:54 02/02/25 04:36 02/02/25 03:36 02/02/25 03:06 02/02/25 02:51 02/02/25 02:35 0 PG Care Time/CCT Total # of Minutes Spent Total Time Spent with Patient: Total time spent is greater than 50% in coordination of care (as documented) at patient's floor/unit and/or counseling patient: Coding Level of Care Code 39187 INT INP/OBS CARE 3/75MIN Diagnoses Acute blood loss anemia D62
--- NOTE | 2025-02-02 15:25 | Hospitalist Progress Note ---
Date of Service February 02, 2025 Assessment & Plan (1) Acute blood loss anemia: (2) HTN (hypertension): (3) Cardiomyopathy: (4) Sick sinus syndrome: (5) Chronic a-fib: Plan This is a 74-year-old female with a history of chronic A-fib on Eliquis, cardiomyopathy, sick sinus syndrome who presents to the hospital with worsening shortness of breath. Found to have a hemoglobin of 4.4 with positive occult stool 1. Blood loss anemia: Patient presents with worsening shortness of breath and dark tarry stools Found to have a hemoglobin of 4.4 and positive occult stool Will type and screen Transfused 3 units of blood Hgb currently 8.3, trend at this time 2. GI bleed: Presents with melena, shortness of breath. The offers a history of alcohol use and possibly abuse, Could be gastritis Found to have a hemoglobin of 4.4, positive occult stool Type and screen Clear liquid diet N.p.o. after midnight IV Protonix BID IV normal saline 80 cc/h GI on board, plan for EGD / C-scope on 02/03 3. Atrial fibrillation: Chronic A-fib on digoxin and metoprolol and Eliquis Hold Eliquis Hypothyroidism - cont levothyroxine Full code Admission and Anticipated Discharge Date Admission Date: February 01, 2025 Subjective no acute events overnight Currently no new complaints States she feels better after receiving blood transfusions Review of Systems Review of Systems: Comprehensive ROS completed and is otherwise negative. Physical Exam Physical Exam: Gen: no acute distress, lying in bed comfortable HEENT: NC/AT, MMM, pallor Lungs: nonlabored breathing, CTAB CVS: s1s2nl, RRR Abd: nl bowel sounds, soft, NT / ND : no lazaro Ext: no edema Neuro: AAOx3 Psych: calm cooperative Results & Data Results & Data Vital Signs (Past 12 Hours) Vital Signs Temp Pulse Pulse Resp BP BP Pulse Ox 02/02/25 11:24 37.1 C 61 23 122/76 100 02/02/25 08:00 91 H 02/02/25 07:54 36.4 C 60 142/87 H 99 02/02/25 06:59 81 17 131/81 02/02/25 05:59 37 C 91 H 119/76 02/02/25 05:14 36.8 C 91 H 130/81 02/02/25 04:59 36.6 C 81 17 128/86 96 02/02/25 04:54 122/81 02/02/25 04:36 36.7 C 81 131/80 02/02/25 03:36 49 L 132/84 O2 Del Method O2 Flow Rate 02/02/25 11:24 Room Air 02/02/25 08:00 02/02/25 07:54 02/02/25 06:59 02/02/25 05:59 02/02/25 05:14 02/02/25 04:59 0 02/02/25 04:54 02/02/25 04:36 02/02/25 03:36 PG Care Time/CCT Total # of Minutes Spent Total Time Spent with Patient: Total time spent is greater than 50% in coordination of care (as documented) at patient's floor/unit and/or counseling patient: Coding Level of Care Code 57808 SUB INP/OBS CARE 3/50MIN Diagnoses Acute blood loss anemia D62 HTN (hypertension) I10 Cardiomyopathy, unspecified type I42.9 Cardiomyopathy type: unspecified Sick sinus syndrome I49.5 Chronic a-fib I48.20 (3) Cardiomyopathy Cardiomyopathy type: unspecified Qualified Code(s): I42.9 - Cardiomyopathy, unspecified
[2025-02-02 15:46] LABS: Iron < 10 mcg/dl (35-150); Total Iron Binding Cap Calc 608 mcg/dl (250-450); Transferrin 434 mg/dl (200-360)
[2025-02-02 16:04] LABS: Vitamin B12 395 pg/ml (180-914)
[2025-02-02 16:05] LABS: Folate (Folic Acid),Ser orPlas > 22.30 ng/ml (>5.38)
[2025-02-02] MEDS: DIGOXIN 0.125 MG TAB PO SCH (16:21)
[2025-02-02 16:28] LABS: Hematocrit (blood only) 26.9 % (37.0-47.0); Hemoglobin 8.9 g/dl (12.0-16.0)
--- NOTE | 2025-02-02 16:47 | Communication Note ---
Date of Service: February 02, 2025 TSH returned >57. Per Dr. Reagan, we will pause on her EGD/colonoscopy until this is treated. Will plan to treat her iron deficiency in the interim. Continue to monitor for overt GI bleeding.
[2025-02-02] MEDS: IRON SUCROSE 200 MG in SODIUM CHLORIDE 0.9% 100 ML IV ONE (17:58)
[2025-02-02] MEDS ORDERED: LAVAGE SOLUTION 4000ML PO SCH (18:00)
[2025-02-02] MEDS: CYCLOSPORINE OPB SCH (21:10)
[2025-02-03 06:41] LABS: Hematocrit (blood only) 24.0 % (37.0-47.0); Hemoglobin 8.1 g/dl (12.0-16.0); Mean Corpuscular Hemoglobin 31.4 pg (25.0-34.0); Mean Corpuscular Volume 93.0 fL (80.0-100.0); Platelet Count 154 K/uL (130-400); RDW Standard Deviation 62.2 fL (36.4-46.3); Red Blood Count 2.58 M/uL (4.20-5.40); White Blood Count 7.68 K/ul (4.8-10.8)
[2025-02-03 06:56] LABS: Anion Gap 7.0 (3-11); Blood Urea Nitrogen 26.0 mg/dl (6-23); Calcium 8.3 mg/dl (8.6-10.3); Carbon Dioxide 22.0 mmol/L (21-32); Chloride 107.0 mmol/L (98-107); Creatinine Clr Calc Pharmacy 44.9 ml/min; Glucose 104.0 mg/dl (70-99(Fasting)); Magnesium 1.7 mg/dl (1.7-2.4); Potassium 3.6 mmol/L (3.5-5.1); Sodium 136.0 mmol/L (136-145)
[2025-02-03] MEDS ORDERED: IRON SUCROSE 100 MG in SODIUM CHLORIDE 0.9% 100 ML IV SCH (09:00)
[2025-02-03] MEDS: IRON SUCROSE 200 MG in SODIUM CHLORIDE 0.9% 100 ML IV SCH (09:10)
[2025-02-03] MEDS: POT PHOSPHATE MONOBASIC W/ SOD TAB PO ONE (09:53)
--- NOTE | 2025-02-03 13:12 | Gastroenterology Progress Note ---
Date of Service February 03, 2025 Assessment & Plan (1) Iron deficiency anemia: Plan: -Continue to monitor H/H and IV iron replacement -IV Protonix 40 mg BID -Will need eventual outpatient EGD & colonoscopy when thyroid has been adequately treated Admission and Anticipated Discharge Date Admission Date: February 01, 2025 Supervising Physician Co-Signing Physician Notes Severe iron deficiency anemia. No karri gastrointestinal bleeding. Patient had markedly elevated TSH levels as I felt endoscopy was elective here deferred until improvement in her thyroid function. Should be on a PPI. Iron replacement. Follow-up in the office in 2 to 3 weeks with an endoscopy in 3 to 4 weeks. Patient is told to return if melena medic easier hematemesis. She can continue her Eliquis. Patient has atrial fibrillation. Subjective Patient is a 74 yo female who is here for iron deficiency anemia. She was to have an EGD & colonoscopy today, but unfortunately her TSH was significantly abnormal and this was deferred due to anesthesia risks. Her H/H today is 8.1/2 4.0. She denies melena, hematochezia, hematemesis. No abdominal pain. She notes she feels fatigued. Review of Systems Constitutional: + fatigue; no fever and no chills Gastrointestinal: no abdominal pain, no coffee ground emesis, no hematemesis, no blood in stools and no melena Physical Exam Constitutional: well developed Respiratory: normal respiratory effort Cardiovascular: Rate/Rhythm: regular rate Psychiatric: Orientation: alert and oriented x 3 Results & Data Results & Data Vital Signs (Past 12 Hours) Vital Signs Temp Pulse Pulse Resp BP Pulse Ox O2 Del Method 02/03/25 12:38 36.9 C 63 20 102/64 94 Room Air 02/03/25 08:25 36.8 C 68 20 101/67 97 Room Air 02/03/25 08:00 62 02/03/25 03:21 36.9 C 68 18 119/68 96 Room Air PG Care Time/CCT Total # of Minutes Spent Total Time Spent with Patient: Total time spent is greater than 50% in coordination of care (as documented) at patient's floor/unit and/or counseling patient: Coding Level of Care Code 28064 SUB INP/OBS CARE 2/35MIN Diagnoses Iron deficiency anemia D50.9
[2025-02-03 15:37] LABS: Hematocrit (blood only) 25.2 % (37.0-47.0); Hemoglobin 8.1 g/dl (12.0-16.0)
[2025-02-03 15:47] VITALS: RESP 18; TEMP 98.6; O2SAT 96
--- NOTE | 2025-02-03 17:41 | Discharge Summary ---
Discharge Summary Date of Service February 03, 2025 Principal Dx & Hospital Course #1 = Principal Diagnosis (1) Acute blood loss anemia: (2) HTN (hypertension): (3) Cardiomyopathy: (4) Sick sinus syndrome: (5) Chronic a-fib: Plan This is a 74-year-old female with a history of chronic A-fib on Eliquis, cardiomyopathy, sick sinus syndrome who presents to the hospital with worsening shortness of breath. Found to have a hemoglobin of 4.4 with positive occult stool #Blood loss anemia: - Patient presents with worsening shortness of breath and dark tarry stools - Found to have a hemoglobin of 4.4 and positive occult stool - Transfused 3 units of blood - Hgb stable at 8.1 #GI bleed: - Presents with melena, shortness of breath. - The offers a history of alcohol use and possibly abuse, Could be gastritis - Found to have a hemoglobin of 4.4, positive occult stool - resume regular diet - cont Protonix 40mg po BID - case discussed with GI, due to TSH at 57, recs outpatient Cscope / EGD as pt is high anesthesia risk - recommend resuming Eliquis and return to hospital if melena / hematochezia / hematemesis resume #Dyspnea - resolved - pt ambulated the hallway with RN without difficulty #Chronic Atrial fibrillation - on digoxin and metoprolol and Eliquis #Hypothyroidism - pt notes running out of Synthroid about 2 weeks ago where she was taking lower dose for few days and not taking it for few days due to running out of her new dose - cont current levothyroxine - pt to follow up with PCP to repeat TSH in few weeks Admission HPI Per Admitting Provider This is a 74-year-old female with a history of atrial fibrillation on anticoagulation, sick sinus syndrome, cardiomyopathy, CAD who presents to the hospital today on account of worsening shortness of breath. According to the patient, she noticed that she was getting increasingly short of breath which initially started several weeks ago but got worse. Shortness of breath is mostly on exertion, however patient denies chest pain. Here in the emergency department hemoglobin was found to be 4.4 compared to 10.2 just a year ago. In hindsight, patient now admits to having dark tarry stools which has been going on for about a week although she did not think much about it she thought it was due to the iron she was taking. Stool was occult blood positive. CT scan of the head and abdomen pelvis have been done, results pending. She has been typed and screened and will be transfused 2 units of blood. She will be admitted to the hospital, gastroenterology be consulted for further management. Discharge Exam Gen: no acute distress, lying in bed comfortable HEENT: NC/AT, MMM, pallor Lungs: nonlabored breathing, CTAB CVS: s1s2nl, RRR Abd: nl bowel sounds, soft, NT / ND : no lazaro Ext: no edema Neuro: AAOx3 Psych: calm cooperative Discharge Plan Discharge Items Patient Disposition: Home - Self-Care Reason For Visit: GI BLEED Discharge Diagnosis: GIB Condition on Discharge: Serious Activity: Resume your previous activity Non-emergency contact: Primary Care Provider and [employer] Call non-emergency contact if: you have any medication questions and your symptoms worsen [facility]] Silvana David CRNP [Primary Care Provider] - Diet: Regular Addtl Attending Provider Instructions: You were admitted for the management of low hemoglobin and associated shortness of breath. Your symptoms improved after 3 units of blood transfusion. You were evaluated by internal controls consultant and recommend outpatient endoscopy. Scopes weren't done during your hospital stay due high TSH level. Please talk with your primary care doctor to have this rechecked and medications adjusted as needed. Please avoid taking NSAIDs and stop drinking alcohol. Note that your eliquis is being resumed. If you vomit blood, blood in the stool, or your stool is tarry / sticky, return to the hospital for further evaluation. Your stool will be black due to iron. If you have questions about this, please call the gastroenterology office for further clarification. If your symptoms worsen, please return to the hospital for further evaluation. Please follow up with your primary care physician within 7 to 10 days. Pending Studies at Discharge: No Stand-Alone Forms: My Sur[employer]Me, Smoking Cessation Medications and DC Order Prescriptions: New ferrous sulfate 325 mg (65 mg iron) Tablet,Delayed Release (Dr/Ec) 325 mg PO DAILY Qty: 30 0RF pantoprazole [Protonix] 40 mg tablet,delayed release (DR/EC) 40 mg PO BID Qty: 60 0RF Continued Eliquis 5 mg tablet 5 mg PO BID Qty: 180 3RF Rx Instructions: take 1 tablet by mouth twice a day lisinopril 2.5 mg tablet 2.5 mg PO QPM Qty: 90 3RF metoprolol succinate 100 mg tablet extended release 24 hr 150 mg PO QAM Qty: 135 3RF digoxin 125 mcg (0.125 mg) tablet 125 mcg PO QAM Qty: 90 3RF amoxicillin 250 mg capsule 250 mg PO DAILY PRN (Reason: rosacea flare) 5 Days Qty: 60 0RF levothyroxine 150 mcg capsule 150 mcg PO DAILY Qty: 90 5RF atorvastatin 40 mg tablet 40 mg PO DAILY Qty: 90 3RF allopurinol 100 mg tablet 100 mg PO QAM Qty: 90 3RF cyclosporine 0.05 % dropperette 1 drp ophthalmic (eye) Q12H Lumigan 0.01 % drops 1 drp ophthalmic (eye) DAILY tramadol 50 mg tablet 50 mg PO Q6H PRN (Reason: pain) Qty: 12 0RF Discharge Orders: Discharge Order (Routine); Ordered 02/03/25 Ordered By: Jessica Light Admission Data Admit Date/Time: 02/01/25 16:11 Attending Provider: Jessica Light Admit Provider: Candy Avendano Primary Care Provider: Silvana David Other Providers: Candy Avendano; Swetha Andrew Hospital Stay Data Consultations 02/01/25 16:03 ED Decision to Admit Stat 02/01/25 21:32 Consult Gastroenterology Routine Procedures Performed Operation Date: 02/03/25 16:45 <No data on this case meets the specified criteria> Diagnostic Imagining Performed 02/01/25 14:49 CT head/brain wo con Stat 02/01/25 15:36 CT abd pelvis IV con only Stat Pending Results Patient Have Any Pending Studies at Discharge: No Discharge Instructions Given to Patient (Per Discharging Provider) You were admitted for the management of low hemoglobin and associated shortness of breath. Your symptoms improved after 3 units of blood transfusion. You were evaluated by internal controls consultant and recommend outpatient endoscopy. Scopes weren't done during your hospital stay due high TSH level. Please talk with your primary care doctor to have this rechecked and medications adjusted as needed. Please avoid taking NSAIDs and stop drinking alcohol. Note that your eliquis is being resumed. If you vomit blood, blood in the stool, or your stool is tarry / sticky, return to the hospital for further evaluation. Your stool will be black due to iron. If you have questions about this, please call the gastroenterology office for further clarification. If your symptoms worsen, please return to the hospital for further evaluation. Please follow up with your primary care physician within 7 to 10 days. Total Time Total Time Spent Total Time Spent (In Minutes): 45 Coding Level of Care Code 25048 INP/OBS DISCH >30 MIN Diagnoses Acute blood loss anemia D62 HTN (hypertension) I10 Cardiomyopathy, unspecified type I42.9 Cardiomyopathy type: unspecified Sick sinus syndrome I49.5 Chronic a-fib I48.20
[2025-02-03 17:48] VITALS: BP 126/75; PULSE 72
[2025-02-03] MEDS ORDERED: PANTOprazole 40 MG/10 ML SYR IV SCH (21:00)
== END 2025-02-03 19:10 | disposition home or self-care (01) | DRG 378 ==
LOC: ED 14:24 → 4W 16:11 → SUATTDRO 16:11 → 4W 21:10